=== PATIENT | female | born 1935 | race Caucasian/White ===

== ENCOUNTER 2016-08-20 14:16 | Inpatient (IN) | payer MEDICARE ==
[~2016-08-20] VITALS: Ht 157.5 cm; Wt 48.2 kg
[2016-08-20 15:15] VITALS: BP 104/51
[2016-08-20] MEDS ORDERED: CLOP75TA PO (16:12)
[2016-08-20] MEDS ORDERED: CALC-341 PO (16:12)
[2016-08-20] MEDS ORDERED: GALA12TA PO (16:12)
[2016-08-20] MEDS ORDERED: LORA1TAB PO (16:12)
[2016-08-20] MEDS ORDERED: VITA400C34 PO (16:12)
[2016-08-20] MEDS ORDERED: LEVO100T PO (16:12)
[2016-08-20] MEDS ORDERED: ESCI10TA PO (16:12)
[2016-08-20] MEDS ORDERED: METO25TA9 PO (16:12)
[2016-08-20] MEDS ORDERED: QUET25TA5 PO (16:12)
[2016-08-20] MEDS ORDERED: AMLO5TAB2 PO (16:12)
[2016-08-20] MEDS ORDERED: SERT100T PO (16:12)
[2016-08-20] MEDS ORDERED: ATOR40TA59 PO (16:12)
[2016-08-20] MEDS ORDERED: MULT-246 PO (16:12)
[2016-08-20] MEDS ORDERED: ASPI81TA9 PO (16:12)
[2016-08-20] MEDS ORDERED: ACETAMINOPHEN 325 MG TABLET PO PRN (16:45)
[2016-08-20] MEDS ORDERED: MAG HYDROX/AL HYDROX/SIMETH 30 ML ORAL.SUSP PO PRN (16:45)
[2016-08-20] MEDS ORDERED: MAGNESIUM HYDROXIDE 2,400 MG/30 ML ORAL.SUSP. PO PRN (16:45)
[2016-08-20 17:40] LABS: BASO # 0.1 x10^3/uL (0.0-0.2); BASO % 2 % (0-3); EOS # 0.2 x10^3/uL (0.0-0.7); EOS % 3 % (0-3); HEMOGLOBIN 12.6 g/dL (12.0-15.5); LYMPH # 3.3 x10^3/uL (1.0-4.8); LYMPH % 44 % (24-48); MEAN CORPUSCULAR HEMOGLOBIN 30 pg (25-35); MEAN CORPUSCULAR HGB CONC 32 g/dL (31-37); MEAN CORPUSCULAR VOLUME 92 fL (79-100); MONO # 0.7 x10^3/uL (0.0-1.1); MONO % 10 % (0-9); NEUT % 41 % (31-73); PLATELET COUNT 224 x10^3/uL (140-400); RED BLOOD COUNT 4.25 x10^6/uL (3.50-5.40); RED CELL DISTRIBUTION WIDTH 14.4 % (11.5-14.5); WHITE BLOOD COUNT 7.4 x10^3/uL (4.0-11.0)
--- NOTE | 2016-08-20 17:51 | EKG ---
[address] [address] Test Date: 2016-08-20 Test Time: 16:51:13 Pat Name: ALEJANDRO CHILDERS Department: Room: [address] [place] [address] Gender: F [employer]st: : 1935 Requested By: PRINCESS GLASS Order Number: [id number] Reading MD: Ryan Perez Measurements Intervals [place] Rate: 59 P: 29 TX: 122 QRS: 54 QRSD: 96 T: 56 QT: 396 QTc: 392 Interpretive Statements SINUS RHYTHM Electronically Signed On 09-06-2016 13:22:27 CDT by Ryan Perez
[2016-08-20 17:59] LABS: ALBUMIN 3.2 g/dL (3.4-5.0); ALBUMIN/GLOBULIN RATIO 0.9 (1.0-1.7); CREATININE 1.1 mg/dL (0.6-1.0); GFR 47.8; POTASSIUM 3.8 mmol/L (3.5-5.1); TOTAL BILIRUBIN 0.4 mg/dL (0.2-1.0); TOTAL PROTEIN 6.9 g/dL (6.4-8.2)
[2016-08-20] MEDS ORDERED: NICOTINE 14MG PATCH. TD ONE (19:30)
[2016-08-20] MEDS: QUEtiapine 25 MG TABLET. PO SCH (21:08)
--- NOTE | 2016-08-20 21:15 | PDOC ---
Exam Scott Demential Exam: Scott Note: Please also refer to the separate dictated note~for this date of service dictated separately.~Patient seen individually. Discussed the patient with Nursing staff reviewed the chart.~Reviewed interim history and current functioning. Reviewed vital signs,~Labs/ Radiology~and current medications noted below. Continue current treatment with the changes noted in the dictated addendum note Assessment: Vital Signs: Vital Signs Date Time Temp Pulse Resp B/P Pulse Ox O2 Delivery O2 Flow Rate FiO2 08/20/16 15:15 97.3 63 16 104/51 97 Room Air Labs: Laboratory Tests Test 08/20/16 17:05 White Blood Count 7.4x10^3/uL (4.0-11.0) Red Blood Count 4.25x10^6/uL (3.50-5.40) Hemoglobin 12.6g/dL (12.0-15.5) Hematocrit 39.0% (36.0-47.0) Mean Corpuscular Volume 92fL (79-100) Mean Corpuscular Hemoglobin 30pg (25-35) Mean Corpuscular Hemoglobin Concent 32g/dL (31-37) Red Cell Distribution Width 14.4% (11.5-14.5) Platelet Count 224x10^3/uL (140-400) Neutrophils (%) (Auto) 41% (31-73) Lymphocytes (%) (Auto) 44% (24-48) Monocytes (%) (Auto) 10% (0-9) H Eosinophils (%) (Auto) 3% (0-3) Basophils (%) (Auto) 2% (0-3) Neutrophils # (Auto) 3.0x10^3uL (1.8-7.7) Lymphocytes # (Auto) 3.3x10^3/uL (1.0-4.8) Monocytes # (Auto) 0.7x10^3/uL (0.0-1.1) Eosinophils # (Auto) 0.2x10^3/uL (0.0-0.7) Basophils # (Auto) 0.1x10^3/uL (0.0-0.2) Sodium Level 146mmol/L (136-145) H Potassium Level 3.8mmol/L (3.5-5.1) Chloride Level 108mmol/L (98-107) H Carbon Dioxide Level 30mmol/L (21-32) Anion Gap 8 (6-14) Blood Urea Nitrogen 16mg/dL (7-20) Creatinine 1.1mg/dL (0.6-1.0) H Estimated GFR (Cockcroft-Gault) 47.8 BUN/Creatinine Ratio 15 (6-20) Glucose Level 117mg/dL (70-99) H Calcium Level 9.0mg/dL (8.5-10.1) Magnesium Level 2.0mg/dL (1.8-2.4) Total Bilirubin 0.4mg/dL (0.2-1.0) Aspartate Amino Transferase (AST) 19U/L (15-37) Alanine Aminotransferase (ALT) 20U/L (14-59) Alkaline Phosphatase 76U/L (46-116) Total Protein 6.9g/dL (6.4-8.2) Albumin 3.2g/dL (3.4-5.0) L Albumin/Globulin Ratio 0.9 (1.0-1.7) L Current Medications: Meds: Current Medications Escitalopram Oxalate (Lexapro) 10 mg DAILY PO ; Start 08/21/16 at 09:00 Lorazepam (Ativan) 1 mg PRN Q6HRS PRN PO ANXIETY / AGITATION; Start 08/20/16 at 16:15 Quetiapine Fumarate (SEROquel) 25 mg TID PO Last administered on 08/20/16t 21:08 ; Start 08/20/16 at 21:00 Aspirin (Aspirin Enteric Coated) 81 mg DAILY PO ; Start 08/21/16 at 09:00 Clopidogrel Bisulfate (Plavix) 75 mg DAILY PO ; Start 08/21/16 at 09:00 Levothyroxine Sodium (Synthroid) 100 mcg DAILY07 PO ; Start 08/21/16 at 07:00 Atorvastatin Calcium (Lipitor) 40 mg DAILY PO ; Start 08/21/16 at 09:00 Non-Formulary Medication 1 each DAILY PO ; Start 08/21/16 at 09:00; Status UNV Multivitamins/ Calcium (Thera-M Plus) 1 tab DAILY PO ; Start 08/21/16 at 09:00 Vitamin E 400 unit DAILY PO ; Start 08/21/16 at 09:00 Calcium Carbonate/ Glycine (Tums) 500 mg DAILY PO ; Start 08/21/16 at 09:00 Magnesium Oxide (Magnesium Oxide) 400 mg DAILY PO ; Start 08/21/16 at 09:00 Folic Acid (Folic Acid) 1 mg DAILY PO ; Start 08/21/16 at 09:00 Acetaminophen (Tylenol) 650 mg PRN Q6HRS PRN PO PAIN / TEMP; Start 08/20/16 at 16:45 Al Hydroxide/Mg Hydroxide (Mylanta Plus Xs) 15 ml PRN AFTMEALHC PRN PO DYSPEPSIA; Start 08/20/16 at 16:45 Magnesium Hydroxide (Milk Of Magnesia) 2,400 mg PRN QHS PRN PO CONSTIPATION; Start 08/20/16 at 16:45 Nicotine (Nicoderm Cq 14mg) 1 patch DAILY TD ; Start 08/21/16 at 09:00 Nicotine (Nicoderm Cq 14mg) 1 patch 1X ONCE TD Last administered on 08/20/16t 21:08; Start 08/20/16 at 19:30; Stop 08/20/16 at 19:33; Status DC Active Scripts Active Reported Vitamin E (Vitamin E Acetate) 400 Unit Capsule 400 Unit PO DAILY Seroquel (Quetiapine Fumarate) 25 Mg Tablet 1 Tab PO TID Multi-Vitamin Daily (Multivitamin) 1 Each Tablet 1 Each PO DAILY Metoprolol Succinate ( Xl ) (Metoprolol Succinate) 25 Mg Tab.er.24h 1 Tab PO BID Magnebind 400 Rx Tablet (Calcium Carbonate/Mag Carb/Fa) 1 Each Tablet 1 Each PO DAILY Lorazepam 1 Mg Tablet 1 Mg PO PRN Q6HRS PRN Synthroid (Levothyroxine Sodium) 100 Mcg Tablet 2 Tab PO DAILY Galantamine Hbr 12 Mg Tablet 24 Mg PO DAILY Escitalopram Oxalate 10 Mg Tablet 1 Tab PO DAILY Clopidogrel (Clopidogrel Bisulfate) 75 Mg Tablet 75 Mg PO DAILY Atorvastatin Calcium 40 Mg Tablet 1 Tab PO DAILY Aspirin Ec (Aspirin) 81 Mg Tablet. 1 Tab PO DAILY Amlodipine Besylate 5 Mg Tablet 1 Tab PO DAILY PRINCESS GLASS MD Aug 20, 2016 21:14
[2016-08-21 05:39] VITALS: BP 152/77
[2016-08-21] MEDS ORDERED: LEVOTHYROXINE 100 MCG TABLET PO SCH (07:00)
[2016-08-21] MEDS ORDERED: MAG CARB PO SCH (09:00)
[2016-08-21] MEDS ORDERED: [UNRECOGNIZED DRUG - OTHER] PO SCH (09:00)
[2016-08-21] MEDS ORDERED: CALCIUM CARBONATE PO SCH (09:00)
[2016-08-21] MEDS: ATORVASTATIN CALCIUM 20 MG TABLET PO SCH (11:26)
[2016-08-21] MEDS: MAGNESIUM OXIDE 400 MG TABLET PO SCH (11:27)
[2016-08-21] MEDS: ESCITALOPRAM 10 MG TABLET. PO SCH (11:27)
[2016-08-21] MEDS: CLOPIDOGREL BISULFATE 75 MG TABLET PO SCH (11:27)
[2016-08-21] MEDS: FOLIC ACID 1 MG TABLET PO SCH (11:27)
[2016-08-21] MEDS: MULTIVITAMIN with MINERAL TABLET. PO SCH (11:27)
[2016-08-21] MEDS: CALCIUM CARBONATE 500 MG TAB.CHEW PO SCH (11:27)
[2016-08-21] MEDS: ASPIRIN ENTERIC COATED 81 MG TABLET.DR. PO SCH (11:27)
[2016-08-21] MEDS: NICOTINE 14MG PATCH. TD SCH (11:27)
[2016-08-21] MEDS: VITAMIN E. 400 UNIT CAPSULE. PO SCH (11:27)
[2016-08-21] MEDS: QUEtiapine 25 MG TABLET. PO SCH ×3 (11:28→20:02)
[2016-08-21 12:07] LABS: CHOLESTEROL 145 mg/dL (0-200); HDLC 70 mg/dL (40-60); LDLC 50 mg/dL (0-100); THYROID STIM HORMONE (TSH) < 0.007 uIU/mL (0.358-3.740); TRIGLYCERIDES 128 mg/dL (0-150); VLDLC 25 mg/dL (0-40)
--- NOTE | 2016-08-21 12:17 | RAD ---
Two-view study of the left hip Clinical indications: Fell today. Left hip pain. Findings: No acute fracture or dislocation or osteolytic process of the left hip is seen. There is a deformity of the inferior pubic ramus on the left side which may represent a nondisplaced fracture here. IMPRESSION: Nondisplaced fracture of the inferior left pubic ramus.
[2016-08-21] MEDS ORDERED: CYANOCOBALAMIN (VITAMIN B-12) 1,000 MCG/ML VIAL IM SCH (13:45)
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
[2016-08-21 15:44] VITALS: BP 167/66
[2016-08-21] MEDS: LORAZEPAM 1 MG TABLET. PO PRN ×2 (15:52→16:42)
[2016-08-21] MEDS: busPIRone 5 MG TABLET. PO SCH (20:02)
[2016-08-21] MEDS: METOPROLOL SUCC 24HR ER 25 MG TAB.ER.24H. PO SCH (20:02)
[2016-08-21] MEDS: ACETAMINOPHEN 325 MG TABLET PO SCH ×2 (20:03→20:30)
--- NOTE | 2016-08-21 22:02 | PDOC ---
Exam Scott Demential Exam: Scott Note: Please also refer to the separate dictated note~for this date of service dictated separately.~Patient seen individually. Discussed the patient with Nursing staff reviewed the chart.~Reviewed interim history and current functioning. Reviewed vital signs,~Labs/ Radiology~and current medications noted below. Continue current treatment with the changes noted in the dictated addendum note Assessment: Vital Signs: Vital Signs Date Time Temp Pulse Resp B/P Pulse Ox O2 Delivery O2 Flow Rate FiO2 08/21/16 20:02 78 167/66 08/21/16 15:44 97.8 18 96 08/21/16 05:39 Room Air I&O Intake and Output 08/21/16 07:00 Intake Total 480 ml Balance 480 ml Intake Oral 480 ml Current Medications: Meds: Current Medications Escitalopram Oxalate (Lexapro) 10 mg DAILY PO Last administered on 08/21/16 11: 27; Start 08/21/16 at 09:00 Lorazepam (Ativan) 1 mg PRN Q6HRS PRN PO ANXIETY / AGITATION Last administered on 08/21/16 16:42; Start 08/20/16 at 16:15; Stop 08/21/16 at 18:21; Status DC Quetiapine Fumarate (SEROquel) 25 mg TID PO Last administered on 08/21/16 20:02 ; Start 08/20/16 at 21:00 Aspirin (Aspirin Enteric Coated) 81 mg DAILY PO Last administered on 08/21/16 11:27; Start 08/21/16 at 09:00 Clopidogrel Bisulfate (Plavix) 75 mg DAILY PO Last administered on 08/21/16 11: 27; Start 08/21/16 at 09:00 Levothyroxine Sodium (Synthroid) 100 mcg DAILY07 PO Last administered on 06:03; Start 08/21/16 at 07:00; Stop 08/21/16 at 13:17; Status DC Atorvastatin Calcium (Lipitor) 40 mg DAILY PO Last administered on 08/21/16 11: 26; Start 08/21/16 at 09:00 Non-Formulary Medication 1 each DAILY PO ; Start 08/21/16 at 09:00; Status UNV Multivitamins/ Calcium (Thera-M Plus) 1 tab DAILY PO Last administered on 11:27; Start 08/21/16 at 09:00 Vitamin E 400 unit DAILY PO Last administered on 08/21/16 11:27; Start 08/21/16 at 09:00 Calcium Carbonate/ Glycine (Tums) 500 mg DAILY PO Last administered on 11:27; Start 08/21/16 at 09:00 Magnesium Oxide (Magnesium Oxide) 400 mg DAILY PO Last administered on 11:; Start 08/21/16 at 09:00 Folic Acid (Folic Acid) 1 mg DAILY PO Last administered on 08/21/16 11:; Start 08/21/16 at 09:00 Acetaminophen (Tylenol) 650 mg PRN Q6HRS PRN PO PAIN / TEMP; Start 08/20/16 at 16:45 Al Hydroxide/Mg Hydroxide (Mylanta Plus Xs) 15 ml PRN AFTMEALHC PRN PO DYSPEPSIA; Start 08/20/16 at 16:45 Magnesium Hydroxide (Milk Of Magnesia) 2,400 mg PRN QHS PRN PO CONSTIPATION; Start 08/20/16 at 16:45 Nicotine (Nicoderm Cq 14mg) 1 patch DAILY TD Last administered on 08/21/16 11: 27; Start 08/21/16 at 09:00 Nicotine (Nicoderm Cq 14mg) 1 patch 1X ONCE TD Last administered on 08/20/16 21:08; Start 08/20/16 at 19:30; Stop 08/20/16 at 19:33; Status DC Metoprolol Succinate (Toprol Xl) 25 mg BID PO Last administered on 08/21/16 20: 02; Start 08/21/16 at 21:00 Cyanocobalamin (Vitamin B-12) 1,000 mcg [id number] IM Last administered on 13:45; Start 08/21/16 at 13:45 Acetaminophen (Tylenol) 650 mg BID PO ; Start 08/21/16 at 21:00 Lorazepam (Ativan) 0.25 mg PRN Q2HR PRN PO ANXIETY / AGITATION; Start 08/22/16 at 16:15 Buspirone HCl (Buspar) 5 mg BID PO Last administered on 08/21/16 20:02; Start 08/21/16 at 21:00 Active Scripts Active Reported Vitamin E (Vitamin E Acetate) 400 Unit Capsule 400 Unit PO DAILY Seroquel (Quetiapine Fumarate) 25 Mg Tablet 1 Tab PO TID Multi-Vitamin Daily (Multivitamin) 1 Each Tablet 1 Each PO DAILY Metoprolol Succinate ( Xl ) (Metoprolol Succinate) 25 Mg Tab.er.24h 1 Tab PO BID Magnebind 400 Rx Tablet (Calcium Carbonate/Mag Carb/Fa) 1 Each Tablet 1 Each PO DAILY Lorazepam 1 Mg Tablet 1 Mg PO PRN Q6HRS PRN Synthroid (Levothyroxine Sodium) 100 Mcg Tablet 2 Tab PO DAILY Galantamine Hbr 12 Mg Tablet 24 Mg PO DAILY Escitalopram Oxalate 10 Mg Tablet 1 Tab PO DAILY Clopidogrel (Clopidogrel Bisulfate) 75 Mg Tablet 75 Mg PO DAILY Atorvastatin Calcium 40 Mg Tablet 1 Tab PO DAILY Aspirin Ec (Aspirin) 81 Mg Tablet. 1 Tab PO DAILY Amlodipine Besylate 5 Mg Tablet 1 Tab PO DAILY PRINCESS GLASS MD Aug 21, 2016 22:02
--- NOTE | 2016-08-21 22:26 | HP ---
ADMIT DATE: 08/20/2016 IDENTIFYING DATA: The patient is an 80-year-old female referred to us from home by her primary care physician, Dr. Jaime Sosa after the patient was evaluated by Dr. Sosa for increased anger, irritability, being hateful to caregivers at home and after the patient "faked" fall at the [facility] and eloped from the hospital. She has been having mood swings, refuses medications, destroyed her apartment, made suicidal statements about wanting to . She has reportedly had anxiety attacks, hallucinations and has failed outpatient psychiatric interventions with Dr. Zayas, having being treated on antidepressants and Seroquel. Memory deficits have been worsening for about 1-1/2 years, but symptoms have been much worse in the past several days resulting in this referral by Dr. Sosa. CHIEF COMPLAINT: "I came here to get my leg checked out." HISTORY OF PRESENT ILLNESS: The patient reportedly has had a history of TIAs, brain aneurysm in and recently has been increasingly confused, forgetful and has a diagnosis of Alzheimer disease. In the recent past, she has been increasingly psychotic, agitated as noted above. She has had sleep and appetite changes. No homicidal ideation, though she has voiced suicidal ideation. PAST PSYCHIATRIC HISTORY: As above. MEDICAL HISTORY: Aneurysm of ascending aorta, aortic valve regurgitation, coronary artery disease, hypertension, hypothyroidism, history of recurrent UTIs, cholelithiasis, status post CVA, GERD, history of pancreatitis, subdural hematoma, B12 deficiency. ALLERGIES: CONTRAST DYE, CEFTRIAXONE, CLARITHROMYCIN, CODEINE, DICLOFENAC, ESTRADIOL, GUAIFENESIN, IODINE, NORETHINDRONE, AZITHROMYCIN, CYCLOBENZAPRINE, DECADRON, LEVAQUIN, ROCEPHIN, SULFA, VOLTAREN. DIET: Regular, ambulates ad-obi. CURRENT PSYCHOTROPICS: Seroquel 25 mg 3 times a day, Lexapro 10 mg a day, Ativan 1 mg q. 6 hours p.r.n. anxiety. FAMILY HISTORY: Noncontributory. SOCIAL HISTORY: No alcohol, drug abuse, physical, sexual or elder abuse history is noted. She is not known to be a perpetrator. MENTAL STATUS EXAMINATION: The patient was seen individually in the evening of 08/20/2016. She is anxious, somewhat paranoid, suspicious, why I was asking her all these questions, oriented to herself, unaware of the date. Speech is coherent, has some latency, abstraction fair, computation impaired, language function intact, attention span short. Mood and affect somewhat anxious, labile, dysphoric, memory is impaired. No active suicidal or homicidal ideation. PHYSICAL EXAMINATION: Temperature 97.6, BP 152/77, pulse 62, respirations 18. REVIEW OF SYSTEMS: No CV, , pulmonary, eye, ENT system symptoms on review. Reliability poor. 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 Rest of diagnoses as above. PLAN: Admit to the Geropsychiatry Unit at [facility]. I will see the patient daily individually from a psychiatric standpoint and medical followup with Dr. Greenfield/Dr. Brock. Continue the patient on her current psychotropics, observe baseline, adjust further as clinically indicated. MAN Ernesto GLASS MD DR: REZA/dank JOB#: [id number] / [id number]
[2016-08-21 23:07] LABS: HEMOGLOBIN A1C 5.5 % (4.8-5.6)
[2016-08-22 00:09] LABS: T3 TOTAL 92 ng/dL (71-180)
[2016-08-22 01:06] LABS: THYROXINE 8.9 ug/dL (4.5-12.0)
[2016-08-22 05:44] VITALS: BP 136/70
[2016-08-22] MEDS: CALCIUM CARBONATE 500 MG TAB.CHEW PO SCH (08:08)
[2016-08-22] MEDS: ATORVASTATIN CALCIUM 20 MG TABLET PO SCH (08:09)
[2016-08-22] MEDS: MAGNESIUM OXIDE 400 MG TABLET PO SCH (08:09)
[2016-08-22] MEDS: FOLIC ACID 1 MG TABLET PO SCH (08:09)
[2016-08-22] MEDS: ESCITALOPRAM 10 MG TABLET. PO SCH (08:09)
[2016-08-22] MEDS: VITAMIN E. 400 UNIT CAPSULE. PO SCH (08:09)
[2016-08-22] MEDS: ASPIRIN ENTERIC COATED 81 MG TABLET.DR. PO SCH (08:09)
[2016-08-22] MEDS: NICOTINE 14MG PATCH. TD SCH (08:09)
[2016-08-22] MEDS: busPIRone 5 MG TABLET. PO SCH (08:09)
[2016-08-22] MEDS: MULTIVITAMIN with MINERAL TABLET. PO SCH (08:09)
[2016-08-22] MEDS: QUEtiapine 25 MG TABLET. PO SCH ×3 (08:10→19:32)
[2016-08-22] MEDS: CLOPIDOGREL BISULFATE 75 MG TABLET PO SCH (08:10)
[2016-08-22] MEDS: METOPROLOL SUCC 24HR ER 25 MG TAB.ER.24H. PO SCH ×2 (08:10→19:32)
[2016-08-22] MEDS: ACETAMINOPHEN 325 MG TABLET PO SCH (08:10)
[2016-08-22 15:55] VITALS: BP 137/71
[2016-08-22] MEDS: LORAZEPAM 0.5 MG TABLET PO PRN (17:15)
[2016-08-22] MEDS: busPIRone 10 MG TABLET. PO SCH (19:57)
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
--- NOTE | 2016-08-22 21:00 | PDOC ---
Exam Scott Demential Exam: Scott Note: Please also refer to the separate dictated note~for this date of service dictated separately.~Patient seen individually. Discussed the patient with Nursing staff reviewed the chart.~Reviewed interim history and current functioning. Reviewed vital signs,~Labs/ Radiology~and current medications noted below. Continue current treatment with the changes noted in the dictated addendum note Assessment: Vital Signs: Vital Signs Date Time Temp Pulse Resp B/P Pulse Ox O2 Delivery O2 Flow Rate FiO2 08/22/16 19:32 69 137/71 08/22/16 15:55 98.0 16 97 Room Air I&O Intake and Output 08/22/16 07:00 Intake Total 840 ml Balance 840 ml Intake Oral 840 ml Current Medications: Meds: Current Medications Escitalopram Oxalate (Lexapro) 10 mg DAILY PO Last administered on 08/22/16 08: 09; Start 08/21/16 at 09:00 Lorazepam (Ativan) 1 mg PRN Q6HRS PRN PO ANXIETY / AGITATION Last administered on 08/21/16 16:42; Start 08/20/16 at 16:15; Stop 08/21/16 at 18:21; Status DC Quetiapine Fumarate (SEROquel) 25 mg TID PO Last administered on 08/22/16 19:32 ; Start 08/20/16 at 21:00 Aspirin (Aspirin Enteric Coated) 81 mg DAILY PO Last administered on 08/22/16 08:09; Start 08/21/16 at 09:00 Clopidogrel Bisulfate (Plavix) 75 mg DAILY PO Last administered on 08/22/16 08: 10; Start 08/21/16 at 09:00 Levothyroxine Sodium (Synthroid) 100 mcg DAILY07 PO Last administered on 06:03; Start 08/21/16 at 07:00; Stop 08/21/16 at 13:17; Status DC Atorvastatin Calcium (Lipitor) 40 mg DAILY PO Last administered on 08/22/16 08: 09; Start 08/21/16 at 09:00; Stop 08/22/16 at 11:20; Status DC Non-Formulary Medication 1 each DAILY PO ; Start 08/21/16 at 09:00; Status UNV Multivitamins/ Calcium (Thera-M Plus) 1 tab DAILY PO Last administered on 08:09; Start 08/21/16 at 09:00; Stop 08/22/16 at 11:20; Status DC Vitamin E 400 unit DAILY PO Last administered on 08/22/16 08:09; Start 08/21/16 at 09:00; Stop 08/22/16 at 11:20; Status DC Calcium Carbonate/ Glycine (Tums) 500 mg DAILY PO Last administered on 08:08; Start 08/21/16 at 09:00; Stop 08/22/16 at 11:20; Status DC Magnesium Oxide (Magnesium Oxide) 400 mg DAILY PO Last administered on 08:09; Start 08/21/16 at 09:00; Stop 08/22/16 at 11:20; Status DC Folic Acid (Folic Acid) 1 mg DAILY PO Last administered on 08/22/16 08:09; Start 08/21/16 at 09:00; Stop 08/22/16 at 11:20; Status DC Acetaminophen (Tylenol) 650 mg PRN Q6HRS PRN PO PAIN / TEMP; Start 08/20/16 at 16:45 Al Hydroxide/Mg Hydroxide (Mylanta Plus Xs) 15 ml PRN AFTMEALHC PRN PO DYSPEPSIA; Start 08/20/16 at 16:45 Magnesium Hydroxide (Milk Of Magnesia) 2,400 mg PRN QHS PRN PO CONSTIPATION; Start 08/20/16 at 16:45 Nicotine (Nicoderm Cq 14mg) 1 patch DAILY TD Last administered on 08/22/16 08: 09; Start 08/21/16 at 09:00 Nicotine (Nicoderm Cq 14mg) 1 patch 1X ONCE TD Last administered on 08/20/16 21:08; Start 08/20/16 at 19:30; Stop 08/20/16 at 19:33; Status DC Metoprolol Succinate (Toprol Xl) 25 mg BID PO Last administered on 08/22/16 19: 32; Start 08/21/16 at 21:00 Cyanocobalamin (Vitamin B-12) 1,000 mcg [id number] IM Last administered on 13:45; Start 08/21/16 at 13:45 Acetaminophen (Tylenol) 650 mg BID PO Last administered on 08/22/16 08:10; Start 08/21/16 at 21:00; Stop 08/22/16 at 11:20; Status DC Lorazepam (Ativan) 0.25 mg PRN Q2HR PRN PO ANXIETY / AGITATION Last administered on 08/22/16 17:15; Start 08/22/16 at 16:15 Buspirone HCl (Buspar) 5 mg BID PO Last administered on 08/22/16 08:09; Start 08/21/16 at 21:00; Stop 08/22/16 at 18:22; Status DC Atorvastatin Calcium (Lipitor) 40 mg HS PO ; Start 08/23/16 at 21:00 Buspirone HCl (Buspar) 10 mg BID PO Last administered on 08/22/16 19:57; Start 08/22/16 at 21:00 Active Scripts Active Reported Vitamin E (Vitamin E Acetate) 400 Unit Capsule 400 Unit PO DAILY Seroquel (Quetiapine Fumarate) 25 Mg Tablet 1 Tab PO TID Multi-Vitamin Daily (Multivitamin) 1 Each Tablet 1 Each PO DAILY Metoprolol Succinate ( Xl ) (Metoprolol Succinate) 25 Mg Tab.er.24h 1 Tab PO BID Magnebind 400 Rx Tablet (Calcium Carbonate/Mag Carb/Fa) 1 Each Tablet 1 Each PO DAILY Lorazepam 1 Mg Tablet 1 Mg PO PRN Q6HRS PRN Synthroid (Levothyroxine Sodium) 100 Mcg Tablet 2 Tab PO DAILY Galantamine Hbr 12 Mg Tablet 24 Mg PO DAILY Escitalopram Oxalate 10 Mg Tablet 1 Tab PO DAILY Clopidogrel (Clopidogrel Bisulfate) 75 Mg Tablet 75 Mg PO DAILY Atorvastatin Calcium 40 Mg Tablet 1 Tab PO DAILY Aspirin Ec (Aspirin) 81 Mg Tablet. 1 Tab PO DAILY Amlodipine Besylate 5 Mg Tablet 1 Tab PO DAILY PRINCESS GLASS MD Aug 22, 2016 21:00
[2016-08-23 05:58] VITALS: BP 112/53
[2016-08-23] MEDS: ASPIRIN ENTERIC COATED 81 MG TABLET.DR. PO SCH (08:11)
[2016-08-23] MEDS: CLOPIDOGREL BISULFATE 75 MG TABLET PO SCH (08:12)
[2016-08-23] MEDS: ESCITALOPRAM 10 MG TABLET. PO SCH (08:12)
[2016-08-23] MEDS: busPIRone 10 MG TABLET. PO SCH ×2 (08:12→20:22)
[2016-08-23] MEDS: QUEtiapine 25 MG TABLET. PO SCH ×4 (08:13→20:22)
[2016-08-23] MEDS: METOPROLOL SUCC 24HR ER 25 MG TAB.ER.24H. PO SCH ×2 (08:14→20:22)
[2016-08-23] MEDS: NICOTINE 14MG PATCH. TD SCH ×2 (08:15→09:00)
[2016-08-23 20:14] VITALS: BP 112/54
[2016-08-23] MEDS: ATORVASTATIN CALCIUM 20 MG TABLET PO SCH (20:22)
--- NOTE | 2016-08-23 20:58 | PDOC ---
Exam Scott Demential Exam: Scott Note: Please also refer to the separate dictated note~for this date of service dictated separately.~Patient seen individually. Discussed the patient with Nursing staff reviewed the chart.~Reviewed interim history and current functioning. Reviewed vital signs,~Labs/ Radiology~and current medications noted below. Continue current treatment with the changes noted in the dictated addendum note Assessment: Vital Signs: Vital Signs Date Time Temp Pulse Resp B/P Pulse Ox O2 Delivery O2 Flow Rate FiO2 08/23/16 20:22 64 112/54 08/23/16 20:14 98.2 16 94 Room Air I&O Intake and Output 08/23/16 07:00 Intake Total 800 ml Balance 800 ml Intake Oral 800 ml # Voids 2 Current Medications: Meds: Current Medications Escitalopram Oxalate (Lexapro) 10 mg DAILY PO Last administered on 08/23/16 08 :12; Start 08/21/16 at 09:00 Lorazepam (Ativan) 1 mg PRN Q6HRS PRN PO ANXIETY / AGITATION Last administered on 08/21/16 16:42; Start 08/20/16 at 16:15; Stop 08/21/16 at 18:21; Status DC Quetiapine Fumarate (SEROquel) 25 mg TID PO Last administered on 08/23/16 20: 22; Start 08/20/16 at 21:00 Aspirin (Aspirin Enteric Coated) 81 mg DAILY PO Last administered on 08/23/16 08:11; Start 08/21/16 at 09:00 Clopidogrel Bisulfate (Plavix) 75 mg DAILY PO Last administered on 08/23/16 08 :12; Start 08/21/16 at 09:00 Levothyroxine Sodium (Synthroid) 100 mcg DAILY07 PO Last administered on 06:03; Start 08/21/16 at 07:00; Stop 08/21/16 at 13:17; Status DC Atorvastatin Calcium (Lipitor) 40 mg DAILY PO Last administered on 08/22/16 08: 09; Start 08/21/16 at 09:00; Stop 08/22/16 at 11:20; Status DC Non-Formulary Medication 1 each DAILY PO ; Start 08/21/16 at 09:00; Status UNV Multivitamins/ Calcium (Thera-M Plus) 1 tab DAILY PO Last administered on 08:09; Start 08/21/16 at 09:00; Stop 08/22/16 at 11:20; Status DC Vitamin E 400 unit DAILY PO Last administered on 08/22/16 08:09; Start 08/21/16 at 09:00; Stop 08/22/16 at 11:20; Status DC Calcium Carbonate/ Glycine (Tums) 500 mg DAILY PO Last administered on 08:08; Start 08/21/16 at 09:00; Stop 08/22/16 at 11:20; Status DC Magnesium Oxide (Magnesium Oxide) 400 mg DAILY PO Last administered on 08:09; Start 08/21/16 at 09:00; Stop 08/22/16 at 11:20; Status DC Folic Acid (Folic Acid) 1 mg DAILY PO Last administered on 08/22/16 08:09; Start 08/21/16 at 09:00; Stop 08/22/16 at 11:20; Status DC Acetaminophen (Tylenol) 650 mg PRN Q6HRS PRN PO PAIN / TEMP; Start 08/20/16 at 16:45 Al Hydroxide/Mg Hydroxide (Mylanta Plus Xs) 15 ml PRN AFTMEALHC PRN PO DYSPEPSIA; Start 08/20/16 at 16:45 Magnesium Hydroxide (Milk Of Magnesia) 2,400 mg PRN QHS PRN PO CONSTIPATION; Start 08/20/16 at 16:45 Nicotine (Nicoderm Cq 14mg) 1 patch DAILY TD Last administered on 08/22/16 08: 09; Start 08/21/16 at 09:00 Nicotine (Nicoderm Cq 14mg) 1 patch 1X ONCE TD Last administered on 08/20/16 21:08; Start 08/20/16 at 19:30; Stop 08/20/16 at 19:33; Status DC Metoprolol Succinate (Toprol Xl) 25 mg BID PO Last administered on 08/23/16 08 :14; Start 08/21/16 at 21:00 Cyanocobalamin (Vitamin B-12) 1,000 mcg [id number] IM Last administered on 13:45; Start 08/21/16 at 13:45 Acetaminophen (Tylenol) 650 mg BID PO Last administered on 08/22/16 08:10; Start 08/21/16 at 21:00; Stop 08/22/16 at 11:20; Status DC Lorazepam (Ativan) 0.25 mg PRN Q2HR PRN PO ANXIETY / AGITATION Last administered on 08/22/16 17:15; Start 08/22/16 at 16:15 Buspirone HCl (Buspar) 5 mg BID PO Last administered on 08/22/16 08:09; Start 08/21/16 at 21:00; Stop 08/22/16 at 18:22; Status DC Atorvastatin Calcium (Lipitor) 40 mg HS PO ; Start 08/23/16 at 21:00 Buspirone HCl (Buspar) 10 mg BID PO Last administered on 08/23/16 20:22; Start 08/22/16 at 21:00 Active Scripts Active Reported Vitamin E (Vitamin E Acetate) 400 Unit Capsule 400 Unit PO DAILY Seroquel (Quetiapine Fumarate) 25 Mg Tablet 1 Tab PO TID Multi-Vitamin Daily (Multivitamin) 1 Each Tablet 1 Each PO DAILY Metoprolol Succinate ( Xl ) (Metoprolol Succinate) 25 Mg Tab.er.24h 1 Tab PO BID Magnebind 400 Rx Tablet (Calcium Carbonate/Mag Carb/Fa) 1 Each Tablet 1 Each PO DAILY Lorazepam 1 Mg Tablet 1 Mg PO PRN Q6HRS PRN Synthroid (Levothyroxine Sodium) 100 Mcg Tablet 2 Tab PO DAILY Galantamine Hbr 12 Mg Tablet 24 Mg PO DAILY Escitalopram Oxalate 10 Mg Tablet 1 Tab PO DAILY Clopidogrel (Clopidogrel Bisulfate) 75 Mg Tablet 75 Mg PO DAILY Atorvastatin Calcium 40 Mg Tablet 1 Tab PO DAILY Aspirin Ec (Aspirin) 81 Mg Tablet. 1 Tab PO DAILY Amlodipine Besylate 5 Mg Tablet 1 Tab PO DAILY PRINCESS GLASS MD Aug 23, 2016 20:58
--- NOTE | 2016-08-23 23:48 | PN ---
DATE: 08/22/2016 PSYCHIATRIC PROGRESS NOTE This is late entry of 08/22/2016, covers elements not covered in my initial note. SUBJECTIVE: Per nursing report, the patient has been irritable, refused p.r.n., has worsening confusion with sundowning, somewhat paranoid, suspicious. REVIEW OF SYSTEMS: No CV, , eye, ENT or pulmonary system symptoms on review. Reliability poor. MENTAL STATUS EXAMINATION: Oriented to herself and situation. Speech, often responses monosyllabic. Abstraction fair, computation impaired, language function intact. Mood and affect withdrawn. LABORATORY DATA: Reviewed. 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 PLAN: Increase BuSpar from 5 b.i.d. to 10 b.i.d., continue Seroquel 25 t.i.d., Lexapro 10 mg a day, Ativan p.r.n. Adjust further as clinically indicated. PRINCESS GLASS MD DR: REZA/dank JOB#: [id number] / [id number]
[2016-08-24 06:18] VITALS: BP 147/61
[2016-08-24] MEDS: busPIRone 10 MG TABLET. PO SCH ×2 (08:05→20:19)
[2016-08-24] MEDS: ASPIRIN ENTERIC COATED 81 MG TABLET.DR. PO SCH (08:05)
[2016-08-24] MEDS: CLOPIDOGREL BISULFATE 75 MG TABLET PO SCH (08:06)
[2016-08-24] MEDS: QUEtiapine 25 MG TABLET. PO SCH ×2 (08:06→13:02)
[2016-08-24] MEDS: ESCITALOPRAM 10 MG TABLET. PO SCH (08:06)
[2016-08-24] MEDS: NICOTINE 14MG PATCH. TD SCH ×2 (08:07→09:00)
[2016-08-24] MEDS: METOPROLOL SUCC 24HR ER 25 MG TAB.ER.24H. PO SCH ×2 (08:07→20:19)
[2016-08-24] MEDS: LORAZEPAM 0.5 MG TABLET PO PRN (15:13)
[2016-08-24] MEDS: risperiDONE 0.25 MG TABLET. PO SCH (20:19)
[2016-08-24] MEDS: ATORVASTATIN CALCIUM 20 MG TABLET PO SCH (20:20)
[2016-08-24 20:24] VITALS: BP 94/50
--- NOTE | 2016-08-24 21:00 | PDOC ---
Exam Scott Demential Exam: Scott Note: Please also refer to the separate dictated note~for this date of service dictated separately.~Patient seen individually. Discussed the patient with Nursing staff reviewed the chart.~Reviewed interim history and current functioning. Reviewed vital signs,~Labs/ Radiology~and current medications noted below. Continue current treatment with the changes noted in the dictated addendum note Assessment: Vital Signs: Vital Signs Date Time Temp Pulse Resp B/P Pulse Ox O2 Delivery O2 Flow Rate FiO2 08/24/16 20:24 97.4 70 16 94/50 95 Room Air I&O Intake and Output 08/24/16 07:00 Intake Total 1200 ml Balance 1200 ml Intake Oral 1200 ml Current Medications: Meds: Current Medications Escitalopram Oxalate (Lexapro) 10 mg DAILY PO Last administered on 08/24/16 08 :06; Start 08/21/16 at 09:00 Lorazepam (Ativan) 1 mg PRN Q6HRS PRN PO ANXIETY / AGITATION Last administered on 08/21/16 16:42; Start 08/20/16 at 16:15; Stop 08/21/16 at 18:21; Status DC Quetiapine Fumarate (SEROquel) 25 mg TID PO Last administered on 08/24/16 13: 02; Start 08/20/16 at 21:00; Stop 08/24/16 at 18:12; Status DC Aspirin (Aspirin Enteric Coated) 81 mg DAILY PO Last administered on 08/24/16 08:05; Start 08/21/16 at 09:00 Clopidogrel Bisulfate (Plavix) 75 mg DAILY PO Last administered on 08/24/16 08 :06; Start 08/21/16 at 09:00 Levothyroxine Sodium (Synthroid) 100 mcg DAILY07 PO Last administered on 06:03; Start 08/21/16 at 07:00; Stop 08/21/16 at 13:17; Status DC Atorvastatin Calcium (Lipitor) 40 mg DAILY PO Last administered on 08/22/16 08: 09; Start 08/21/16 at 09:00; Stop 08/22/16 at 11:20; Status DC Non-Formulary Medication 1 each DAILY PO ; Start 08/21/16 at 09:00; Status UNV Multivitamins/ Calcium (Thera-M Plus) 1 tab DAILY PO Last administered on 08:09; Start 08/21/16 at 09:00; Stop 08/22/16 at 11:20; Status DC Vitamin E 400 unit DAILY PO Last administered on 08/22/16 08:09; Start 08/21/16 at 09:00; Stop 08/22/16 at 11:20; Status DC Calcium Carbonate/ Glycine (Tums) 500 mg DAILY PO Last administered on 08:08; Start 08/21/16 at 09:00; Stop 08/22/16 at 11:20; Status DC Magnesium Oxide (Magnesium Oxide) 400 mg DAILY PO Last administered on 08:09; Start 08/21/16 at 09:00; Stop 08/22/16 at 11:20; Status DC Folic Acid (Folic Acid) 1 mg DAILY PO Last administered on 08/22/16 08:09; Start 08/21/16 at 09:00; Stop 08/22/16 at 11:20; Status DC Acetaminophen (Tylenol) 650 mg PRN Q6HRS PRN PO PAIN / TEMP; Start 08/20/16 at 16:45 Al Hydroxide/Mg Hydroxide (Mylanta Plus Xs) 15 ml PRN AFTMEALHC PRN PO DYSPEPSIA; Start 08/20/16 at 16:45 Magnesium Hydroxide (Milk Of Magnesia) 2,400 mg PRN QHS PRN PO CONSTIPATION; Start 08/20/16 at 16:45 Nicotine (Nicoderm Cq 14mg) 1 patch DAILY TD Last administered on 08/22/16 08: 09; Start 08/21/16 at 09:00 Nicotine (Nicoderm Cq 14mg) 1 patch 1X ONCE TD Last administered on 08/20/16 21:08; Start 08/20/16 at 19:30; Stop 08/20/16 at 19:33; Status DC Metoprolol Succinate (Toprol Xl) 25 mg BID PO Last administered on 08/24/16 08 :07; Start 08/21/16 at 21:00 Cyanocobalamin (Vitamin B-12) 1,000 mcg [id number] IM Last administered on 13:45; Start 08/21/16 at 13:45 Acetaminophen (Tylenol) 650 mg BID PO Last administered on 08/22/16 08:10; Start 08/21/16 at 21:00; Stop 08/22/16 at 11:20; Status DC Lorazepam (Ativan) 0.25 mg PRN Q2HR PRN PO ANXIETY / AGITATION Last administered on 08/24/16 15:13; Start 08/22/16 at 16:15 Buspirone HCl (Buspar) 5 mg BID PO Last administered on 08/22/16 08:09; Start 08/21/16 at 21:00; Stop 08/22/16 at 18:22; Status DC Atorvastatin Calcium (Lipitor) 40 mg HS PO Last administered on 08/24/16 20:20 ; Start 08/23/16 at 21:00 Buspirone HCl (Buspar) 10 mg BID PO Last administered on 08/24/16 20:19; Start 08/22/16 at 21:00 Risperidone (Risperdal) 0.25 mg QHS PO Last administered on 08/24/16 20:19; Start 08/24/16 at 21:00 Active Scripts Active Reported Vitamin E (Vitamin E Acetate) 400 Unit Capsule 400 Unit PO DAILY Seroquel (Quetiapine Fumarate) 25 Mg Tablet 1 Tab PO TID Multi-Vitamin Daily (Multivitamin) 1 Each Tablet 1 Each PO DAILY Metoprolol Succinate ( Xl ) (Metoprolol Succinate) 25 Mg Tab.er.24h 1 Tab PO BID Magnebind 400 Rx Tablet (Calcium Carbonate/Mag Carb/Fa) 1 Each Tablet 1 Each PO DAILY Lorazepam 1 Mg Tablet 1 Mg PO PRN Q6HRS PRN Synthroid (Levothyroxine Sodium) 100 Mcg Tablet 2 Tab PO DAILY Galantamine Hbr 12 Mg Tablet 24 Mg PO DAILY Escitalopram Oxalate 10 Mg Tablet 1 Tab PO DAILY Clopidogrel (Clopidogrel Bisulfate) 75 Mg Tablet 75 Mg PO DAILY Atorvastatin Calcium 40 Mg Tablet 1 Tab PO DAILY Aspirin Ec (Aspirin) 81 Mg Tablet. 1 Tab PO DAILY Amlodipine Besylate 5 Mg Tablet 1 Tab PO DAILY PRINCESS GLASS MD Aug 24, 2016 21:00
--- NOTE | 2016-08-25 04:23 | PN ---
DATE: 08/23/2016 PSYCHIATRIC PROGRESS NOTE This is a late entry for 08/23/2016, covers elements not covered in my initial note. SUBJECTIVE: The patient slept 7-1/4 hours previous night, took her a.m. medication, refused nicotine patch, confused, believed she was admitted on 08/23/2016, refused Seroquel at 1400 hours, trying to sneak out of the unit at times, nasty, sarcastic per nursing report. REVIEW OF SYSTEMS: No CV, , pulmonary, eye, ENT system symptoms on review. MENTAL STATUS EXAMINATION: Oriented to herself and at times to situation. Speech coherent, abstraction fair, computation impaired. Language function intact. Attention span short. Mood and affect, intermittently anxious, labile. LABORATORY DATA: Reviewed. IMPRESSION: Unchanged from initial note. PLAN: Continue psychotropics mentioned in my initial note. Adjust further as clinically indicated. BuSpar was adjusted to 10 mg b.i.d. She is on Seroquel 25 mg t.i.d., Lexapro 10 mg a day, and Ativan p.r.n. MAN Ernesto GLASS MD DR: REZA/dank JOB#: [id number] / [id number]
[2016-08-25 05:12] VITALS: BP 143/61
[2016-08-25] MEDS: busPIRone 10 MG TABLET. PO SCH ×2 (08:18→19:32)
[2016-08-25] MEDS: ASPIRIN ENTERIC COATED 81 MG TABLET.DR. PO SCH (08:18)
[2016-08-25] MEDS: CLOPIDOGREL BISULFATE 75 MG TABLET PO SCH (08:18)
[2016-08-25] MEDS: NICOTINE 14MG PATCH. TD SCH ×2 (08:19→08:25)
[2016-08-25] MEDS: ESCITALOPRAM 10 MG TABLET. PO SCH (08:19)
[2016-08-25] MEDS: METOPROLOL SUCC 24HR ER 25 MG TAB.ER.24H. PO SCH ×2 (08:19→19:31)
--- NOTE | 2016-08-25 11:20 | RAD ---
CT of the head without contrast, 08/25/2016: History: Altered mental status There is mild cerebral atrophy. There are moderate patchy lucencies in the deep white matter, more so on the right, compatible with chronic ischemic change. 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 The ventricles are mildly prominent on a compensatory basis. There is no shift of the midline structures. There is no evidence of acute intracranial hemorrhage or mass effect. Small left frontotemporal calvarial defects appear to be postsurgical. IMPRESSION: 1. Chronic changes as described above. 2. No acute intracranial abnormality is detected. PQRS Compliance Statement: One or more of the following individualized dose reduction techniques were utilized for this examination: 1. Automated exposure control 2. Adjustment of the mA and/or kV according to patient size 3. Use of iterative reconstruction technique
[2016-08-25] MEDS: risperiDONE 0.25 MG TABLET. PO SCH (19:31)
[2016-08-25] MEDS: ATORVASTATIN CALCIUM 20 MG TABLET PO SCH (19:32)
[2016-08-25 19:34] VITALS: BP 162/62
--- NOTE | 2016-08-25 21:03 | PDOC ---
Exam Scott Demential Exam: Scott Note: Please also refer to the separate dictated note~for this date of service dictated separately.~Patient seen individually. Discussed the patient with Nursing staff reviewed the chart.~Reviewed interim history and current functioning. Reviewed vital signs,~Labs/ Radiology~and current medications noted below. Continue current treatment with the changes noted in the dictated addendum note Assessment: Vital Signs: Vital Signs Date Time Temp Pulse Resp B/P Pulse Ox O2 Delivery O2 Flow Rate FiO2 08/25/16 19:34 98.2 67 16 162/62 97 Room Air I&O Intake and Output 08/25/16 07:00 Intake Total 1200 ml Balance 1200 ml Intake Oral 1200 ml # Voids 3 Current Medications: Meds: Current Medications Escitalopram Oxalate (Lexapro) 10 mg DAILY PO Last administered on 08/25/16 08 :19; Start 08/21/16 at 09:00 Lorazepam (Ativan) 1 mg PRN Q6HRS PRN PO ANXIETY / AGITATION Last administered on 08/21/16 16:42; Start 08/20/16 at 16:15; Stop 08/21/16 at 18:21; Status DC Quetiapine Fumarate (SEROquel) 25 mg TID PO Last administered on 08/24/16 13: 02; Start 08/20/16 at 21:00; Stop 08/24/16 at 18:12; Status DC Aspirin (Aspirin Enteric Coated) 81 mg DAILY PO Last administered on 08/25/16 08:18; Start 08/21/16 at 09:00 Clopidogrel Bisulfate (Plavix) 75 mg DAILY PO Last administered on 08/25/16 08 :18; Start 08/21/16 at 09:00 Levothyroxine Sodium (Synthroid) 100 mcg DAILY07 PO Last administered on 06:03; Start 08/21/16 at 07:00; Stop 08/21/16 at 13:17; Status DC Atorvastatin Calcium (Lipitor) 40 mg DAILY PO Last administered on 08/22/16 08: 09; Start 08/21/16 at 09:00; Stop 08/22/16 at 11:20; Status DC Non-Formulary Medication 1 each DAILY PO ; Start 08/21/16 at 09:00; Status UNV Multivitamins/ Calcium (Thera-M Plus) 1 tab DAILY PO Last administered on 08:09; Start 08/21/16 at 09:00; Stop 08/22/16 at 11:20; Status DC Vitamin E 400 unit DAILY PO Last administered on 08/22/16 08:09; Start 08/21/16 at 09:00; Stop 08/22/16 at 11:20; Status DC Calcium Carbonate/ Glycine (Tums) 500 mg DAILY PO Last administered on 08:08; Start 08/21/16 at 09:00; Stop 08/22/16 at 11:20; Status DC Magnesium Oxide (Magnesium Oxide) 400 mg DAILY PO Last administered on 08:09; Start 08/21/16 at 09:00; Stop 08/22/16 at 11:20; Status DC Folic Acid (Folic Acid) 1 mg DAILY PO Last administered on 08/22/16 08:09; Start 08/21/16 at 09:00; Stop 08/22/16 at 11:20; Status DC Acetaminophen (Tylenol) 650 mg PRN Q6HRS PRN PO PAIN / TEMP; Start 08/20/16 at 16:45 Al Hydroxide/Mg Hydroxide (Mylanta Plus Xs) 15 ml PRN AFTMEALHC PRN PO DYSPEPSIA; Start 08/20/16 at 16:45 Magnesium Hydroxide (Milk Of Magnesia) 2,400 mg PRN QHS PRN PO CONSTIPATION; Start 08/20/16 at 16:45 Nicotine (Nicoderm Cq 14mg) 1 patch DAILY TD Last administered on 08/22/16 08: 09; Start 08/21/16 at 09:00 Nicotine (Nicoderm Cq 14mg) 1 patch 1X ONCE TD Last administered on 08/20/16 21:08; Start 08/20/16 at 19:30; Stop 08/20/16 at 19:33; Status DC Metoprolol Succinate (Toprol Xl) 25 mg BID PO Last administered on 08/25/16 19 :31; Start 08/21/16 at 21:00 Cyanocobalamin (Vitamin B-12) 1,000 mcg [id number] IM Last administered on 13:45; Start 08/21/16 at 13:45 Acetaminophen (Tylenol) 650 mg BID PO Last administered on 08/22/16 08:10; Start 08/21/16 at 21:00; Stop 08/22/16 at 11:20; Status DC Lorazepam (Ativan) 0.25 mg PRN Q2HR PRN PO ANXIETY / AGITATION Last administered on 08/24/16 15:13; Start 08/22/16 at 16:15 Buspirone HCl (Buspar) 5 mg BID PO Last administered on 08/22/16 08:09; Start 08/21/16 at 21:00; Stop 08/22/16 at 18:22; Status DC Atorvastatin Calcium (Lipitor) 40 mg HS PO Last administered on 08/25/16 19:32 ; Start 08/23/16 at 21:00 Buspirone HCl (Buspar) 10 mg BID PO Last administered on 08/25/16 19:32; Start 08/22/16 at 21:00 Risperidone (Risperdal) 0.25 mg QHS PO Last administered on 08/25/16 19:31; Start 08/24/16 at 21:00 Active Scripts Active Reported Vitamin E (Vitamin E Acetate) 400 Unit Capsule 400 Unit PO DAILY Seroquel (Quetiapine Fumarate) 25 Mg Tablet 1 Tab PO TID Multi-Vitamin Daily (Multivitamin) 1 Each Tablet 1 Each PO DAILY Metoprolol Succinate ( Xl ) (Metoprolol Succinate) 25 Mg Tab.er.24h 1 Tab PO BID Magnebind 400 Rx Tablet (Calcium Carbonate/Mag Carb/Fa) 1 Each Tablet 1 Each PO DAILY Lorazepam 1 Mg Tablet 1 Mg PO PRN Q6HRS PRN Synthroid (Levothyroxine Sodium) 100 Mcg Tablet 2 Tab PO DAILY Galantamine Hbr 12 Mg Tablet 24 Mg PO DAILY Escitalopram Oxalate 10 Mg Tablet 1 Tab PO DAILY Clopidogrel (Clopidogrel Bisulfate) 75 Mg Tablet 75 Mg PO DAILY Atorvastatin Calcium 40 Mg Tablet 1 Tab PO DAILY Aspirin Ec (Aspirin) 81 Mg Tablet. 1 Tab PO DAILY Amlodipine Besylate 5 Mg Tablet 1 Tab PO DAILY PRINCESS GLASS MD Aug 25, 2016 21:03
--- NOTE | 2016-08-25 22:43 | PN ---
DATE: 08/24/2016 PSYCHIATRIC PROGRESS NOTE This is late entry of 08/24/2016, covers elements not covered in my initial note. SUBJECTIVE: Overall, per nursing report, the patient has been tearful, depressed at times, fearful that she might . She would not get to see her grandchildren, was agitated, paranoid, refused her medications, instigating others to elope, verbally irritable, labile. I had a lengthy telephone conversation on two separate occasions on evening of 08/24/2016 with the patient's daughter, Bradly. Daughter stated the patient had been treated by Dr. Marina, psychiatrist in [place] in the past with diagnosis of major depressive disorder and we will get those records. In addition, the patient did have a fall at the nursing facility, went to [facility]. Daughter indicated she was told CT head was unremarkable. Nursing notes indicate possibility of subdural hematoma at that time and given this discrepancy, we will go ahead and check a CT head on this week and conform from [facility] that in fact she had no subdural at that time. REVIEW OF SYSTEMS: No CV, , pulmonary, eye, ENT system symptoms on review. She slept 7-1/2 hours. MENTAL STATUS EXAMINATION: Oriented to herself. Insight, judgment, recent and remote memory, attention, concentration, fund of knowledge poor, consistent with her diagnosis. IMPRESSION: Major neurocognitive disorder, Alzheimer, vascular with depression, delusions, major depressive disorder with psychotic features, anxiety disorder, unspecified; nondisplaced fracture of left inferior ramus of the pubis. PLAN: Continue BuSpar 10 b.i.d., Lexapro 10 mg a day, Ativan p.r.n. Change Seroquel to Risperdal 0.25 mg at bedtime along with p.r.n. Ativan. Adjust further as clinically indicated. PRINCESS GLASS MD DR: REZA/dank JOB#: [id number] / [id number]
[2016-08-26 05:40] VITALS: BP 122/76
[2016-08-26 07:44] LABS: ALBUMIN 3.4 g/dL (3.4-5.0); ALBUMIN/GLOBULIN RATIO 0.9 (1.0-1.7); CALCIUM 9.2 mg/dL (8.5-10.1); CREATININE 1.1 mg/dL (0.6-1.0); GFR 47.8; MAGNESIUM 2.2 mg/dL (1.8-2.4); POTASSIUM 4.2 mmol/L (3.5-5.1); TOTAL BILIRUBIN 0.8 mg/dL (0.2-1.0); TOTAL PROTEIN 7.1 g/dL (6.4-8.2)
[2016-08-26 07:50] LABS: BASO # 0.2 x10^3/uL (0.0-0.2); BASO % 2 % (0-3); EOS # 0.4 x10^3/uL (0.0-0.7); EOS % 5 % (0-3); HEMATOCRIT 39.2 % (36.0-47.0); HEMOGLOBIN 12.7 g/dL (12.0-15.5); LYMPH # 2.4 x10^3/uL (1.0-4.8); LYMPH % 35 % (24-48); MEAN CORPUSCULAR HEMOGLOBIN 30 pg (25-35); MEAN CORPUSCULAR HGB CONC 33 g/dL (31-37); MEAN CORPUSCULAR VOLUME 92 fL (79-100); MONO # 0.6 x10^3/uL (0.0-1.1); MONO % 10 % (0-9); NEUT # 3.2 x10^3uL (1.8-7.7); NEUT % 48 % (31-73); PLATELET COUNT 141 x10^3/uL (140-400); RED BLOOD COUNT 4.25 x10^6/uL (3.50-5.40); WHITE BLOOD COUNT 6.7 x10^3/uL (4.0-11.0)
[2016-08-26] MEDS: NICOTINE 14MG PATCH. TD SCH ×2 (09:00→09:05)
[2016-08-26] MEDS: METOPROLOL SUCC 24HR ER 25 MG TAB.ER.24H. PO SCH ×3 (09:00→21:00)
[2016-08-26] MEDS: CLOPIDOGREL BISULFATE 75 MG TABLET PO SCH (09:05)
[2016-08-26] MEDS: ESCITALOPRAM 10 MG TABLET. PO SCH (09:05)
[2016-08-26] MEDS: busPIRone 10 MG TABLET. PO SCH ×3 (09:05→21:00)
[2016-08-26] MEDS: ASPIRIN ENTERIC COATED 81 MG TABLET.DR. PO SCH (09:06)
[2016-08-26 15:38] VITALS: BP 131/52
[2016-08-26] MEDS: ATORVASTATIN CALCIUM 20 MG TABLET PO SCH ×2 (19:32→21:00)
[2016-08-26] MEDS: risperiDONE 0.25 MG TABLET. PO SCH ×2 (19:32→21:00)
--- NOTE | 2016-08-26 21:05 | PDOC ---
Exam Scott Demential Exam: Scott Note: Please also refer to the separate dictated note~for this date of service dictated separately.~Patient seen individually. Discussed the patient with Nursing staff reviewed the chart.~Reviewed interim history and current functioning. Reviewed vital signs,~Labs/ Radiology~and current medications noted below. Continue current treatment with the changes noted in the dictated addendum note Assessment: Vital Signs: Vital Signs Date Time Temp Pulse Resp B/P Pulse Ox O2 Delivery O2 Flow Rate FiO2 08/26/16 19:33 56 131/52 08/26/16 15:38 97.8 16 97 08/25/16 19:34 Room Air I&O Intake and Output 08/26/16 07:00 Intake Total 960 ml Balance 960 ml Intake Oral 960 ml # Bowel Movements 1 Labs: Laboratory Tests Test 08/26/16 07:13 White Blood Count 6.7x10^3/uL (4.0-11.0) Red Blood Count 4.25x10^6/uL (3.50-5.40) Hemoglobin 12.7g/dL (12.0-15.5) Hematocrit 39.2% (36.0-47.0) Mean Corpuscular Volume 92fL (79-100) Mean Corpuscular Hemoglobin 30pg (25-35) Mean Corpuscular Hemoglobin Concent 33g/dL (31-37) Red Cell Distribution Width 14.0% (11.5-14.5) Platelet Count 141x10^3/uL (140-400) Neutrophils (%) (Auto) 48% (31-73) Lymphocytes (%) (Auto) 35% (24-48) Monocytes (%) (Auto) 10% (0-9) H Eosinophils (%) (Auto) 5% (0-3) H Basophils (%) (Auto) 2% (0-3) Neutrophils # (Auto) 3.2x10^3uL (1.8-7.7) Lymphocytes # (Auto) 2.4x10^3/uL (1.0-4.8) Monocytes # (Auto) 0.6x10^3/uL (0.0-1.1) Eosinophils # (Auto) 0.4x10^3/uL (0.0-0.7) Basophils # (Auto) 0.2x10^3/uL (0.0-0.2) Sodium Level 145mmol/L (136-145) Potassium Level 4.2mmol/L (3.5-5.1) Chloride Level 110mmol/L (98-107) H Carbon Dioxide Level 29mmol/L (21-32) Anion Gap 6 (6-14) Blood Urea Nitrogen 18mg/dL (7-20) Creatinine 1.1mg/dL (0.6-1.0) H Estimated GFR (Cockcroft-Gault) 47.8 BUN/Creatinine Ratio 16 (6-20) Glucose Level 98mg/dL (70-99) Calcium Level 9.2mg/dL (8.5-10.1) Magnesium Level 2.2mg/dL (1.8-2.4) Total Bilirubin 0.8mg/dL (0.2-1.0) Aspartate Amino Transferase (AST) 22U/L (15-37) Alanine Aminotransferase (ALT) 22U/L (14-59) Alkaline Phosphatase 76U/L (46-116) Total Protein 7.1g/dL (6.4-8.2) Albumin 3.4g/dL (3.4-5.0) Albumin/Globulin Ratio 0.9 (1.0-1.7) L Current Medications: Meds: Current Medications Escitalopram Oxalate (Lexapro) 10 mg DAILY PO Last administered on 08/26/16 09 :05; Start 08/21/16 at 09:00 Lorazepam (Ativan) 1 mg PRN Q6HRS PRN PO ANXIETY / AGITATION Last administered on 08/21/16 16:42; Start 08/20/16 at 16:15; Stop 08/21/16 at 18:21; Status DC Quetiapine Fumarate (SEROquel) 25 mg TID PO Last administered on 08/24/16 13: 02; Start 08/20/16 at 21:00; Stop 08/24/16 at 18:12; Status DC Aspirin (Aspirin Enteric Coated) 81 mg DAILY PO Last administered on 08/26/16 09:06; Start 08/21/16 at 09:00 Clopidogrel Bisulfate (Plavix) 75 mg DAILY PO Last administered on 08/26/16 09 :05; Start 08/21/16 at 09:00 Levothyroxine Sodium (Synthroid) 100 mcg DAILY07 PO Last administered on 06:03; Start 08/21/16 at 07:00; Stop 08/21/16 at 13:17; Status DC Atorvastatin Calcium (Lipitor) 40 mg DAILY PO Last administered on 08/22/16 08: 09; Start 08/21/16 at 09:00; Stop 08/22/16 at 11:20; Status DC Non-Formulary Medication 1 each DAILY PO ; Start 08/21/16 at 09:00; Status UNV Multivitamins/ Calcium (Thera-M Plus) 1 tab DAILY PO Last administered on 08:09; Start 08/21/16 at 09:00; Stop 08/22/16 at 11:20; Status DC Vitamin E 400 unit DAILY PO Last administered on 08/22/16 08:09; Start 08/21/16 at 09:00; Stop 08/22/16 at 11:20; Status DC Calcium Carbonate/ Glycine (Tums) 500 mg DAILY PO Last administered on 08:08; Start 08/21/16 at 09:00; Stop 08/22/16 at 11:20; Status DC Magnesium Oxide (Magnesium Oxide) 400 mg DAILY PO Last administered on 08:09; Start 08/21/16 at 09:00; Stop 08/22/16 at 11:20; Status DC Folic Acid (Folic Acid) 1 mg DAILY PO Last administered on 08/22/16 08:09; Start 08/21/16 at 09:00; Stop 08/22/16 at 11:20; Status DC Acetaminophen (Tylenol) 650 mg PRN Q6HRS PRN PO PAIN / TEMP; Start 08/20/16 at 16:45 Al Hydroxide/Mg Hydroxide (Mylanta Plus Xs) 15 ml PRN AFTMEALHC PRN PO DYSPEPSIA; Start 08/20/16 at 16:45 Magnesium Hydroxide (Milk Of Magnesia) 2,400 mg PRN QHS PRN PO CONSTIPATION; Start 08/20/16 at 16:45 Nicotine (Nicoderm Cq 14mg) 1 patch DAILY TD Last administered on 08/22/16 08: 09; Start 08/21/16 at 09:00 Nicotine (Nicoderm Cq 14mg) 1 patch 1X ONCE TD Last administered on 08/20/16 21:08; Start 08/20/16 at 19:30; Stop 08/20/16 at 19:33; Status DC Metoprolol Succinate (Toprol Xl) 25 mg BID PO Last administered on 08/26/16 19 :33; Start 08/21/16 at 21:00 Cyanocobalamin (Vitamin B-12) 1,000 mcg [id number] IM Last administered on 13:45; Start 08/21/16 at 13:45 Acetaminophen (Tylenol) 650 mg BID PO Last administered on 08/22/16 08:10; Start 08/21/16 at 21:00; Stop 08/22/16 at 11:20; Status DC Lorazepam (Ativan) 0.25 mg PRN Q2HR PRN PO ANXIETY / AGITATION Last administered on 08/24/16 15:13; Start 08/22/16 at 16:15 Buspirone HCl (Buspar) 5 mg BID PO Last administered on 08/22/16 08:09; Start 08/21/16 at 21:00; Stop 08/22/16 at 18:22; Status DC Atorvastatin Calcium (Lipitor) 40 mg HS PO Last administered on 08/26/16 19:32 ; Start 08/23/16 at 21:00 Buspirone HCl (Buspar) 10 mg BID PO Last administered on 08/26/16 19:32; Start 08/22/16 at 21:00 Risperidone (Risperdal) 0.25 mg QHS PO Last administered on 08/26/16 19:32; Start 08/24/16 at 21:00 Active Scripts Active Reported Vitamin E (Vitamin E Acetate) 400 Unit Capsule 400 Unit PO DAILY Seroquel (Quetiapine Fumarate) 25 Mg Tablet 1 Tab PO TID Multi-Vitamin Daily (Multivitamin) 1 Each Tablet 1 Each PO DAILY Metoprolol Succinate ( Xl ) (Metoprolol Succinate) 25 Mg Tab.er.24h 1 Tab PO BID Magnebind 400 Rx Tablet (Calcium Carbonate/Mag Carb/Fa) 1 Each Tablet 1 Each PO DAILY Lorazepam 1 Mg Tablet 1 Mg PO PRN Q6HRS PRN Synthroid (Levothyroxine Sodium) 100 Mcg Tablet 2 Tab PO DAILY Galantamine Hbr 12 Mg Tablet 24 Mg PO DAILY Escitalopram Oxalate 10 Mg Tablet 1 Tab PO DAILY Clopidogrel (Clopidogrel Bisulfate) 75 Mg Tablet 75 Mg PO DAILY Atorvastatin Calcium 40 Mg Tablet 1 Tab PO DAILY Aspirin Ec (Aspirin) 81 Mg Tablet. 1 Tab PO DAILY Amlodipine Besylate 5 Mg Tablet 1 Tab PO DAILY PRINCESS GLASS MD Aug 26, 2016 21:05
[2016-08-27 06:06] LABS: BACTERIA,URINE FEW /HPF (0-FEW); BILIRUBIN,URINE NEG (NEG); CLARITY,URINE CLEAR; COLOR,URINE YELLOW; GLUCOSE,URINE NEG (NEG); NITRITE,URINE NEG (NEG); RBC,URINE OCC /HPF (0-2); SQUAMOUS EPITHELIAL CELL,UR FEW /LPF; UROBILINOGEN,URINE 0.2 mg/dL (0.2 mg/dL)
[2016-08-27 06:31] VITALS: BP 149/69
[2016-08-27] MEDS: NICOTINE 14MG PATCH. TD SCH (09:00)
[2016-08-27] MEDS: METOPROLOL SUCC 24HR ER 25 MG TAB.ER.24H. PO SCH ×4 (09:00→22:48)
[2016-08-27] MEDS: ESCITALOPRAM 10 MG TABLET. PO SCH (09:16)
[2016-08-27] MEDS: CLOPIDOGREL BISULFATE 75 MG TABLET PO SCH (09:16)
[2016-08-27] MEDS: busPIRone 10 MG TABLET. PO SCH ×4 (09:16→22:49)
[2016-08-27] MEDS: ASPIRIN ENTERIC COATED 81 MG TABLET.DR. PO SCH (09:25)
[2016-08-27 15:53] VITALS: BP 159/52
--- NOTE | 2016-08-27 20:06 | PDOC ---
Exam Scott Demential Exam: Scott Note: Please also refer to the separate dictated note~for this date of service dictated separately.~Patient seen individually. Discussed the patient with Nursing staff reviewed the chart.~Reviewed interim history and current functioning. Reviewed vital signs,~Labs/ Radiology~and current medications noted below. Continue current treatment with the changes noted in the dictated addendum note Assessment: Vital Signs: Vital Signs Date Time Temp Pulse Resp B/P Pulse Ox O2 Delivery O2 Flow Rate FiO2 08/27/16 15:53 97.1 59 16 159/52 96 08/25/16 19:34 Room Air I&O Intake and Output 08/27/16 07:00 Intake Total 720 ml Balance 720 ml Intake Oral 720 ml Labs: Laboratory Tests Test 08/27/16 05:40 Urine Collection Type Unknown Urine Color Yellow Urine Clarity Clear Urine pH 5.5 Urine Specific [place] 1.010 Urine Protein Trace (NEG-TRACE) Urine Glucose (UA) Negmg/dL (NEG) Urine Ketones (Stick) Negmg/dL (NEG) Urine Blood Trace (NEG) Urine Nitrite Neg (NEG) Urine Bilirubin Neg (NEG) Urine Urobilinogen Dipstick 0.2mg/dL (0.2 mg/dL) Urine Leukocyte Esterase Small (NEG) Urine RBC Occ/HPF (0-2) Urine WBC 1-4/HPF (0-4) Urine Squamous Epithelial Cells Few/LPF Urine Bacteria Few/HPF (0-FEW) Current Medications: Meds: Current Medications Escitalopram Oxalate (Lexapro) 10 mg DAILY PO Last administered on 08/27/16 09 :16; Start 08/21/16 at 09:00 Lorazepam (Ativan) 1 mg PRN Q6HRS PRN PO ANXIETY / AGITATION Last administered on 08/21/16 16:42; Start 08/20/16 at 16:15; Stop 08/21/16 at 18:21; Status DC Quetiapine Fumarate (SEROquel) 25 mg TID PO Last administered on 08/24/16 13: 02; Start 08/20/16 at 21:00; Stop 08/24/16 at 18:12; Status DC Aspirin (Aspirin Enteric Coated) 81 mg DAILY PO Last administered on 08/27/16 09:25; Start 08/21/16 at 09:00 Clopidogrel Bisulfate (Plavix) 75 mg DAILY PO Last administered on 08/27/16 09 :16; Start 08/21/16 at 09:00 Levothyroxine Sodium (Synthroid) 100 mcg DAILY07 PO Last administered on 06:03; Start 08/21/16 at 07:00; Stop 08/21/16 at 13:17; Status DC Atorvastatin Calcium (Lipitor) 40 mg DAILY PO Last administered on 08/22/16 08: 09; Start 08/21/16 at 09:00; Stop 08/22/16 at 11:20; Status DC Non-Formulary Medication 1 each DAILY PO ; Start 08/21/16 at 09:00; Status UNV Multivitamins/ Calcium (Thera-M Plus) 1 tab DAILY PO Last administered on 08:09; Start 08/21/16 at 09:00; Stop 08/22/16 at 11:20; Status DC Vitamin E 400 unit DAILY PO Last administered on 08/22/16 08:09; Start 08/21/16 at 09:00; Stop 08/22/16 at 11:20; Status DC Calcium Carbonate/ Glycine (Tums) 500 mg DAILY PO Last administered on 08:08; Start 08/21/16 at 09:00; Stop 08/22/16 at 11:20; Status DC Magnesium Oxide (Magnesium Oxide) 400 mg DAILY PO Last administered on 08:09; Start 08/21/16 at 09:00; Stop 08/22/16 at 11:20; Status DC Folic Acid (Folic Acid) 1 mg DAILY PO Last administered on 08/22/16 08:09; Start 08/21/16 at 09:00; Stop 08/22/16 at 11:20; Status DC Acetaminophen (Tylenol) 650 mg PRN Q6HRS PRN PO PAIN / TEMP; Start 08/20/16 at 16:45 Al Hydroxide/Mg Hydroxide (Mylanta Plus Xs) 15 ml PRN AFTMEALHC PRN PO DYSPEPSIA; Start 08/20/16 at 16:45 Magnesium Hydroxide (Milk Of Magnesia) 2,400 mg PRN QHS PRN PO CONSTIPATION; Start 08/20/16 at 16:45 Nicotine (Nicoderm Cq 14mg) 1 patch DAILY TD Last administered on 08/22/16 08: 09; Start 08/21/16 at 09:00 Nicotine (Nicoderm Cq 14mg) 1 patch 1X ONCE TD Last administered on 08/20/16 21:08; Start 08/20/16 at 19:30; Stop 08/20/16 at 19:33; Status DC Metoprolol Succinate (Toprol Xl) 25 mg BID PO Last administered on 08/26/16 09 :00; Start 08/21/16 at 21:00 Cyanocobalamin (Vitamin B-12) 1,000 mcg [id number] IM Last administered on 13:45; Start 08/21/16 at 13:45 Acetaminophen (Tylenol) 650 mg BID PO Last administered on 08/22/16 08:10; Start 08/21/16 at 21:00; Stop 08/22/16 at 11:20; Status DC Lorazepam (Ativan) 0.25 mg PRN Q2HR PRN PO ANXIETY / AGITATION Last administered on 08/24/16 15:13; Start 08/22/16 at 16:15 Buspirone HCl (Buspar) 5 mg BID PO Last administered on 08/22/16 08:09; Start 08/21/16 at 21:00; Stop 08/22/16 at 18:22; Status DC Atorvastatin Calcium (Lipitor) 40 mg HS PO Last administered on 08/25/16 19:32 ; Start 08/23/16 at 21:00 Buspirone HCl (Buspar) 10 mg BID PO Last administered on 08/27/16 09:16; Start 08/22/16 at 21:00 Risperidone (Risperdal) 0.25 mg QHS PO Last administered on 08/25/16 19:31; Start 08/24/16 at 21:00; Stop 08/27/16 at 18:34; Status DC Risperidone (Risperdal) 0.375 mg HS PO ; Start 08/27/16 at 21:00 Active Scripts Active Reported Vitamin E (Vitamin E Acetate) 400 Unit Capsule 400 Unit PO DAILY Seroquel (Quetiapine Fumarate) 25 Mg Tablet 1 Tab PO TID Multi-Vitamin Daily (Multivitamin) 1 Each Tablet 1 Each PO DAILY Metoprolol Succinate ( Xl ) (Metoprolol Succinate) 25 Mg Tab.er.24h 1 Tab PO BID Magnebind 400 Rx Tablet (Calcium Carbonate/Mag Carb/Fa) 1 Each Tablet 1 Each PO DAILY Lorazepam 1 Mg Tablet 1 Mg PO PRN Q6HRS PRN Synthroid (Levothyroxine Sodium) 100 Mcg Tablet 2 Tab PO DAILY Galantamine Hbr 12 Mg Tablet 24 Mg PO DAILY Escitalopram Oxalate 10 Mg Tablet 1 Tab PO DAILY Clopidogrel (Clopidogrel Bisulfate) 75 Mg Tablet 75 Mg PO DAILY Atorvastatin Calcium 40 Mg Tablet 1 Tab PO DAILY Aspirin Ec (Aspirin) 81 Mg Tablet. 1 Tab PO DAILY Amlodipine Besylate 5 Mg Tablet 1 Tab PO DAILY PRINCESS GLASS MD Aug 27, 2016 20:06
[2016-08-27] MEDS: risperiDONE 0.25 MG TABLET. PO SCH ×3 (20:19→22:49)
[2016-08-27] MEDS: ATORVASTATIN CALCIUM 20 MG TABLET PO SCH ×3 (20:21→22:50)
--- NOTE | 2016-08-28 00:46 | PN ---
DATE: 08/25/2016 PSYCHIATRIC PROGRESS NOTE This is late entry of 08/25/2016, covers elements not covered in my initial note. SUBJECTIVE: The patient's CT head shows no acute changes, though there are chronic changes. She has been confused, forgetful, repetitive, trying to elope from the unit, instigating others to do the same. Reviewed past psychiatric records from her outpatient psychiatrist, which indicated that diagnosis of dementia together with depression and psychotic symptoms and she had been treated on Zoloft and Wellbutrin in the past. REVIEW OF SYSTEMS: No CV, , pulmonary, eye, ENT system symptoms on review. She does have pubic ramus fracture, but ambulates on her own, does not complain of pain. MENTAL STATUS EXAMINATION: Oriented to herself and situation. Speech is coherent, abstraction fair, computation impaired, language function intact. Short term memory is impaired. Mood and affect remain somewhat anxious, labile. LABORATORY DATA: Reviewed. IMPRESSION: Unchanged from initial note. PLAN: Continue Lexapro 10 mg a day, Ativan p.r.n., BuSpar 10 b.i.d., Risperdal 0.25 mg at bedtime and Ativan p.r.n., adjust further as clinically indicated. PRINCESS GLASS MD DR: REZA/dank JOB#: [id number] / [id number]
--- NOTE | 2016-08-28 00:54 | PN ---
DATE: 08/26/2016 PSYCHIATRIC PROGRESS NOTE This is late entry of 08/26/2016, covers elements not covered in my initial note. SUBJECTIVE: The patient was staffed at treatment team meeting with the entire team morning of 08/26/2016 along with the patient's daughter, Mar and son, Jean-Paul attending. Lengthy discussion about her diagnosis results of CT head, past records, current treatment and her history. She was living at home with in-home care, then was at [facility] from where she eloped and then was at [place] for 5 days and behaviors were marked with her attempts to elope, worsening confusion. Discussed current medications and discharge plans. REVIEW OF SYSTEMS: No CV, , pulmonary, eye, ENT system symptoms on review. The patient is irritable at times, talking down to staff, at times takes her meds in food. UA will be repeated. She does have an inferior pubic ramus fracture, but does not complain of pain. MENTAL STATUS EXAMINATION: Oriented to herself and situation at times. Speech is coherent, still somewhat paranoid, abstraction fair, computation impaired, language function intact, attention span short. Mood and affect somewhat anxious, labile at times. LABORATORY DATA: Reviewed. 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 PLAN: Continue current psychotropics, BuSpar 10 b.i.d., Risperdal 0.25 mg at bedtime, Lexapro 10 mg a day, Ativan p.r.n. Adjust further as clinically indicated. MAN Ernesto GLASS MD DR: REZA/dank JOB#: [id number] / [id number]
[2016-08-28 06:35] VITALS: BP 143/62
[2016-08-28] MEDS: NICOTINE 14MG PATCH. TD SCH (08:35)
[2016-08-28] MEDS: CLOPIDOGREL BISULFATE 75 MG TABLET PO SCH (08:36)
[2016-08-28] MEDS: ASPIRIN ENTERIC COATED 81 MG TABLET.DR. PO SCH (08:36)
[2016-08-28] MEDS: busPIRone 10 MG TABLET. PO SCH ×2 (08:36→19:48)
[2016-08-28] MEDS: ESCITALOPRAM 10 MG TABLET. PO SCH (08:36)
[2016-08-28] MEDS: METOPROLOL SUCC 24HR ER 25 MG TAB.ER.24H. PO SCH ×2 (09:00→19:48)
[2016-08-28 15:55] VITALS: BP 134/66
[2016-08-28] MEDS: ATORVASTATIN CALCIUM 20 MG TABLET PO SCH (19:47)
[2016-08-28] MEDS: risperiDONE 0.25 MG TABLET. PO SCH (19:47)
--- NOTE | 2016-08-28 22:03 | PDOC ---
Exam Scott Demential Exam: Scott Note: Please also refer to the separate dictated note~for this date of service dictated separately.~Patient seen individually. Discussed the patient with Nursing staff reviewed the chart.~Reviewed interim history and current functioning. Reviewed vital signs,~Labs/ Radiology~and current medications noted below. Continue current treatment with the changes noted in the dictated addendum note Assessment: Vital Signs: Vital Signs Date Time Temp Pulse Resp B/P Pulse Ox O2 Delivery O2 Flow Rate FiO2 08/28/16 19:48 64 134/66 08/28/16 15:55 97.0 18 96 Room Air I&O Intake and Output 08/28/16 07:00 Intake Total 1080 ml Balance 1080 ml Intake Oral 1080 ml Current Medications: Meds: Current Medications Escitalopram Oxalate (Lexapro) 10 mg DAILY PO Last administered on 08/28/16 08 :36; Start 08/21/16 at 09:00 Lorazepam (Ativan) 1 mg PRN Q6HRS PRN PO ANXIETY / AGITATION Last administered on 08/21/16 16:42; Start 08/20/16 at 16:15; Stop 08/21/16 at 18:21; Status DC Quetiapine Fumarate (SEROquel) 25 mg TID PO Last administered on 08/24/16 13: 02; Start 08/20/16 at 21:00; Stop 08/24/16 at 18:12; Status DC Aspirin (Aspirin Enteric Coated) 81 mg DAILY PO Last administered on 08/28/16 08:36; Start 08/21/16 at 09:00 Clopidogrel Bisulfate (Plavix) 75 mg DAILY PO Last administered on 08/28/16 08 :36; Start 08/21/16 at 09:00 Levothyroxine Sodium (Synthroid) 100 mcg DAILY07 PO Last administered on 06:03; Start 08/21/16 at 07:00; Stop 08/21/16 at 13:17; Status DC Atorvastatin Calcium (Lipitor) 40 mg DAILY PO Last administered on 08/22/16 08: 09; Start 08/21/16 at 09:00; Stop 08/22/16 at 11:20; Status DC Non-Formulary Medication 1 each DAILY PO ; Start 08/21/16 at 09:00; Status UNV Multivitamins/ Calcium (Thera-M Plus) 1 tab DAILY PO Last administered on 08:09; Start 08/21/16 at 09:00; Stop 08/22/16 at 11:20; Status DC Vitamin E 400 unit DAILY PO Last administered on 08/22/16 08:09; Start 08/21/16 at 09:00; Stop 08/22/16 at 11:20; Status DC Calcium Carbonate/ Glycine (Tums) 500 mg DAILY PO Last administered on 08:08; Start 08/21/16 at 09:00; Stop 08/22/16 at 11:20; Status DC Magnesium Oxide (Magnesium Oxide) 400 mg DAILY PO Last administered on 08:09; Start 08/21/16 at 09:00; Stop 08/22/16 at 11:20; Status DC Folic Acid (Folic Acid) 1 mg DAILY PO Last administered on 08/22/16 08:09; Start 08/21/16 at 09:00; Stop 08/22/16 at 11:20; Status DC Acetaminophen (Tylenol) 650 mg PRN Q6HRS PRN PO PAIN / TEMP; Start 08/20/16 at 16:45 Al Hydroxide/Mg Hydroxide (Mylanta Plus Xs) 15 ml PRN AFTMEALHC PRN PO DYSPEPSIA; Start 08/20/16 at 16:45 Magnesium Hydroxide (Milk Of Magnesia) 2,400 mg PRN QHS PRN PO CONSTIPATION; Start 08/20/16 at 16:45 Nicotine (Nicoderm Cq 14mg) 1 patch DAILY TD Last administered on 08/28/16 08: 35; Start 08/21/16 at 09:00 Nicotine (Nicoderm Cq 14mg) 1 patch 1X ONCE TD Last administered on 08/20/16 21:08; Start 08/20/16 at 19:30; Stop 08/20/16 at 19:33; Status DC Metoprolol Succinate (Toprol Xl) 25 mg BID PO Last administered on 08/28/16 19 :48; Start 08/21/16 at 21:00 Cyanocobalamin (Vitamin B-12) 1,000 mcg [id number] IM Last administered on 13:45; Start 08/21/16 at 13:45 Acetaminophen (Tylenol) 650 mg BID PO Last administered on 08/22/16 08:10; Start 08/21/16 at 21:00; Stop 08/22/16 at 11:20; Status DC Lorazepam (Ativan) 0.25 mg PRN Q2HR PRN PO ANXIETY / AGITATION Last administered on 08/24/16 15:13; Start 08/22/16 at 16:15 Buspirone HCl (Buspar) 5 mg BID PO Last administered on 08/22/16 08:09; Start 08/21/16 at 21:00; Stop 08/22/16 at 18:22; Status DC Atorvastatin Calcium (Lipitor) 40 mg HS PO Last administered on 08/28/16 19:47 ; Start 08/23/16 at 21:00 Buspirone HCl (Buspar) 10 mg BID PO Last administered on 08/28/16 19:48; Start 08/22/16 at 21:00 Risperidone (Risperdal) 0.25 mg QHS PO Last administered on 08/25/16 19:31; Start 08/24/16 at 21:00; Stop 08/27/16 at 18:34; Status DC Risperidone (Risperdal) 0.375 mg HS PO Last administered on 08/28/16 19:47; Start 08/27/16 at 21:00 Active Scripts Active Reported Vitamin E (Vitamin E Acetate) 400 Unit Capsule 400 Unit PO DAILY Seroquel (Quetiapine Fumarate) 25 Mg Tablet 1 Tab PO TID Multi-Vitamin Daily (Multivitamin) 1 Each Tablet 1 Each PO DAILY Metoprolol Succinate ( Xl ) (Metoprolol Succinate) 25 Mg Tab.er.24h 1 Tab PO BID Magnebind 400 Rx Tablet (Calcium Carbonate/Mag Carb/Fa) 1 Each Tablet 1 Each PO DAILY Lorazepam 1 Mg Tablet 1 Mg PO PRN Q6HRS PRN Synthroid (Levothyroxine Sodium) 100 Mcg Tablet 2 Tab PO DAILY Galantamine Hbr 12 Mg Tablet 24 Mg PO DAILY Escitalopram Oxalate 10 Mg Tablet 1 Tab PO DAILY Clopidogrel (Clopidogrel Bisulfate) 75 Mg Tablet 75 Mg PO DAILY Atorvastatin Calcium 40 Mg Tablet 1 Tab PO DAILY Aspirin Ec (Aspirin) 81 Mg Tablet. 1 Tab PO DAILY Amlodipine Besylate 5 Mg Tablet 1 Tab PO DAILY PRINCESS GLASS MD Aug 28, 2016 22:03
[2016-08-29 06:14] VITALS: BP 121/56
[2016-08-29] MEDS: NICOTINE 14MG PATCH. TD SCH ×2 (09:00→09:05)
[2016-08-29] MEDS: busPIRone 10 MG TABLET. PO SCH ×2 (09:04→19:27)
[2016-08-29] MEDS: ESCITALOPRAM 10 MG TABLET. PO SCH (09:05)
[2016-08-29] MEDS: ASPIRIN ENTERIC COATED 81 MG TABLET.DR. PO SCH (09:05)
[2016-08-29] MEDS: CLOPIDOGREL BISULFATE 75 MG TABLET PO SCH (09:05)
[2016-08-29 09:11] VITALS: BP 126/64
[2016-08-29] MEDS: METOPROLOL SUCC 24HR ER 25 MG TAB.ER.24H. PO SCH ×2 (09:13→19:28)
[2016-08-29 16:11] VITALS: BP 181/67
[2016-08-29] MEDS: ATORVASTATIN CALCIUM 20 MG TABLET PO SCH (19:27)
[2016-08-29] MEDS: risperiDONE 0.25 MG TABLET. PO SCH (19:29)
--- NOTE | 2016-08-29 21:25 | PDOC ---
Exam Scott Demential Exam: Sctot Note: Please also refer to the separate dictated note~for this date of service dictated separately.~Patient seen individually. Discussed the patient with Nursing staff reviewed the chart.~Reviewed interim history and current functioning. Reviewed vital signs,~Labs/ Radiology~and current medications noted below. Continue current treatment with the changes noted in the dictated addendum note Assessment: Vital Signs: Vital Signs Date Time Temp Pulse Resp B/P Pulse Ox O2 Delivery O2 Flow Rate FiO2 08/29/16 19:28 63 181/67 08/29/16 16:11 97.6 18 96 08/29/16 09:11 Room Air I&O Intake and Output 08/29/16 07:00 Intake Total 600 ml Balance 600 ml Intake Oral 600 ml Current Medications: Meds: Current Medications Escitalopram Oxalate (Lexapro) 10 mg DAILY PO Last administered on 08/29/16 09 :05; Start 08/21/16 at 09:00 Lorazepam (Ativan) 1 mg PRN Q6HRS PRN PO ANXIETY / AGITATION Last administered on 08/21/16 16:42; Start 08/20/16 at 16:15; Stop 08/21/16 at 18:21; Status DC Quetiapine Fumarate (SEROquel) 25 mg TID PO Last administered on 08/24/16 13: 02; Start 08/20/16 at 21:00; Stop 08/24/16 at 18:12; Status DC Aspirin (Aspirin Enteric Coated) 81 mg DAILY PO Last administered on 08/29/16 09:05; Start 08/21/16 at 09:00 Clopidogrel Bisulfate (Plavix) 75 mg DAILY PO Last administered on 08/29/16 09 :05; Start 08/21/16 at 09:00 Levothyroxine Sodium (Synthroid) 100 mcg DAILY07 PO Last administered on 06:03; Start 08/21/16 at 07:00; Stop 08/21/16 at 13:17; Status DC Atorvastatin Calcium (Lipitor) 40 mg DAILY PO Last administered on 08/22/16 08: 09; Start 08/21/16 at 09:00; Stop 08/22/16 at 11:20; Status DC Non-Formulary Medication 1 each DAILY PO ; Start 08/21/16 at 09:00; Status UNV Multivitamins/ Calcium (Thera-M Plus) 1 tab DAILY PO Last administered on 08:09; Start 08/21/16 at 09:00; Stop 08/22/16 at 11:20; Status DC Vitamin E 400 unit DAILY PO Last administered on 08/22/16 08:09; Start 08/21/16 at 09:00; Stop 08/22/16 at 11:20; Status DC Calcium Carbonate/ Glycine (Tums) 500 mg DAILY PO Last administered on 08:08; Start 08/21/16 at 09:00; Stop 08/22/16 at 11:20; Status DC Magnesium Oxide (Magnesium Oxide) 400 mg DAILY PO Last administered on 08:09; Start 08/21/16 at 09:00; Stop 08/22/16 at 11:20; Status DC Folic Acid (Folic Acid) 1 mg DAILY PO Last administered on 08/22/16 08:09; Start 08/21/16 at 09:00; Stop 08/22/16 at 11:20; Status DC Acetaminophen (Tylenol) 650 mg PRN Q6HRS PRN PO PAIN / TEMP; Start 08/20/16 at 16:45 Al Hydroxide/Mg Hydroxide (Mylanta Plus Xs) 15 ml PRN AFTMEALHC PRN PO DYSPEPSIA; Start 08/20/16 at 16:45 Magnesium Hydroxide (Milk Of Magnesia) 2,400 mg PRN QHS PRN PO CONSTIPATION; Start 08/20/16 at 16:45 Nicotine (Nicoderm Cq 14mg) 1 patch DAILY TD Last administered on 08/28/16 08: 35; Start 08/21/16 at 09:00 Nicotine (Nicoderm Cq 14mg) 1 patch 1X ONCE TD Last administered on 08/20/16 21:08; Start 08/20/16 at 19:30; Stop 08/20/16 at 19:33; Status DC Metoprolol Succinate (Toprol Xl) 25 mg BID PO Last administered on 08/29/16 19 :28; Start 08/21/16 at 21:00 Cyanocobalamin (Vitamin B-12) 1,000 mcg [id number] IM Last administered on 13:45; Start 08/21/16 at 13:45 Acetaminophen (Tylenol) 650 mg BID PO Last administered on 08/22/16 08:10; Start 08/21/16 at 21:00; Stop 08/22/16 at 11:20; Status DC Lorazepam (Ativan) 0.25 mg PRN Q2HR PRN PO ANXIETY / AGITATION Last administered on 08/24/16 15:13; Start 08/22/16 at 16:15 Buspirone HCl (Buspar) 5 mg BID PO Last administered on 08/22/16 08:09; Start 08/21/16 at 21:00; Stop 08/22/16 at 18:22; Status DC Atorvastatin Calcium (Lipitor) 40 mg HS PO Last administered on 08/29/16 19:27 ; Start 08/23/16 at 21:00 Buspirone HCl (Buspar) 10 mg BID PO Last administered on 08/29/16 19:27; Start 08/22/16 at 21:00 Risperidone (Risperdal) 0.25 mg QHS PO Last administered on 08/25/16 19:31; Start 08/24/16 at 21:00; Stop 08/27/16 at 18:34; Status DC Risperidone (Risperdal) 0.375 mg HS PO Last administered on 08/29/16 19:29; Start 08/27/16 at 21:00 Active Scripts Active Reported Vitamin E (Vitamin E Acetate) 400 Unit Capsule 400 Unit PO DAILY Seroquel (Quetiapine Fumarate) 25 Mg Tablet 1 Tab PO TID Multi-Vitamin Daily (Multivitamin) 1 Each Tablet 1 Each PO DAILY Metoprolol Succinate ( Xl ) (Metoprolol Succinate) 25 Mg Tab.er.24h 1 Tab PO BID Magnebind 400 Rx Tablet (Calcium Carbonate/Mag Carb/Fa) 1 Each Tablet 1 Each PO DAILY Lorazepam 1 Mg Tablet 1 Mg PO PRN Q6HRS PRN Synthroid (Levothyroxine Sodium) 100 Mcg Tablet 2 Tab PO DAILY Galantamine Hbr 12 Mg Tablet 24 Mg PO DAILY Escitalopram Oxalate 10 Mg Tablet 1 Tab PO DAILY Clopidogrel (Clopidogrel Bisulfate) 75 Mg Tablet 75 Mg PO DAILY Atorvastatin Calcium 40 Mg Tablet 1 Tab PO DAILY Aspirin Ec (Aspirin) 81 Mg Tablet. 1 Tab PO DAILY Amlodipine Besylate 5 Mg Tablet 1 Tab PO DAILY PRINCESS GLASS MD Aug 29, 2016 21:25
--- NOTE | 2016-08-29 21:35 | PN ---
DATE: 08/27/2016 PSYCHIATRIC PROGRESS NOTE This is late entry of 08/27/2016, covers elements not covered in my initial note. SUBJECTIVE: The patient has been suspicious, anxious, confused, minimizes memory problems as I met with her. She felt the year was 2011, angry, agitated as I was asking her orientation questions, refused bedtime meds the previous night, took them on 08/27/2016. REVIEW OF SYSTEMS: No CV, , pulmonary, eye, ENT system symptoms on review. Reliability poor. MENTAL STATUS EXAMINATION: Oriented to herself and situation. Speech has moderate latency, often responses monosyllabic. Abstraction fair, computation impaired, language function intact. Mood and affect still somewhat withdrawn. LABORATORY DATA: Reviewed. IMPRESSION: Unchanged from initial note. PLAN: Increase Risperdal from 0.25 mg at bedtime to 0.375 mg at bedtime. Make further adjustments as clinically indicated. MAN Ernesto GLASS MD DR: REZA/dank JOB#: [id number] / [id number]
--- NOTE | 2016-08-29 21:42 | PN ---
DATE: 08/28/2016 PSYCHIATRIC PROGRESS NOTE This is a late entry for 08/28/2016, covers elements not covered in my initial note. SUBJECTIVE: The patient remains paranoid, resistive to medications in the evening, made vague statements to nursing staff "I might as well ." When I questioned her directly on this, she denies suicidal ideation, just expressed frustration at her situation, but limited insight into memory deficits. REVIEW OF SYSTEMS: No CV, , pulmonary, eye system symptoms on review. MENTAL STATUS EXAM: Oriented to herself and situation. Speech moderate latency, often responses monosyllabic. Abstraction fair, computation impaired, language function intact. Mood and affect somewhat labile, anxious. LABORATORY DATA: Reviewed. IMPRESSION: Unchanged from initial note. PLAN: Continue current psychotropics. Adjust as indicated. MAN Ernesto GLASS MD DR: REZA/dank JOB#: [id number] / [id number]
[2016-08-30 06:13] VITALS: BP 151/76
[2016-08-30] MEDS: NICOTINE 14MG PATCH. TD SCH ×2 (09:00→09:14)
[2016-08-30] MEDS: METOPROLOL SUCC 24HR ER 25 MG TAB.ER.24H. PO SCH ×2 (09:13→19:15)
[2016-08-30] MEDS: ASPIRIN ENTERIC COATED 81 MG TABLET.DR. PO SCH (09:13)
[2016-08-30] MEDS: CLOPIDOGREL BISULFATE 75 MG TABLET PO SCH (09:14)
[2016-08-30] MEDS: busPIRone 10 MG TABLET. PO SCH ×2 (09:14→19:15)
[2016-08-30] MEDS: ESCITALOPRAM 10 MG TABLET. PO SCH (09:14)
[2016-08-30] MEDS: ATORVASTATIN CALCIUM 20 MG TABLET PO SCH (19:15)
[2016-08-30] MEDS: risperiDONE 0.25 MG TABLET. PO SCH (19:15)
--- NOTE | 2016-08-30 20:58 | PDOC ---
Exam Scott Demential Exam: Scott Note: Please also refer to the separate dictated note~for this date of service dictated separately.~Patient seen individually. Discussed the patient with Nursing staff reviewed the chart.~Reviewed interim history and current functioning. Reviewed vital signs,~Labs/ Radiology~and current medications noted below. Continue current treatment with the changes noted in the dictated addendum note Assessment: Vital Signs: Vital Signs Date Time Temp Pulse Resp B/P Pulse Ox O2 Delivery O2 Flow Rate FiO2 08/30/16 19:15 61 151/76 08/30/16 06:13 98.1 14 96 08/29/16 09:11 Room Air I&O Intake and Output 08/30/16 07:00 Intake Total 840 ml Balance 840 ml Intake Oral 840 ml Labs: Laboratory Tests Test 08/30/16 06:40 Thyroid Stimulating Hormone (TSH) 0.405uIU/mL (0.358-3.740) Current Medications: Meds: Current Medications Escitalopram Oxalate (Lexapro) 10 mg DAILY PO Last administered on 08/30/16 09 :14; Start 08/21/16 at 09:00 Lorazepam (Ativan) 1 mg PRN Q6HRS PRN PO ANXIETY / AGITATION Last administered on 08/21/16 16:42; Start 08/20/16 at 16:15; Stop 08/21/16 at 18:21; Status DC Quetiapine Fumarate (SEROquel) 25 mg TID PO Last administered on 08/24/16 13: 02; Start 08/20/16 at 21:00; Stop 08/24/16 at 18:12; Status DC Aspirin (Aspirin Enteric Coated) 81 mg DAILY PO Last administered on 08/30/16 09:13; Start 08/21/16 at 09:00 Clopidogrel Bisulfate (Plavix) 75 mg DAILY PO Last administered on 08/30/16 09 :14; Start 08/21/16 at 09:00 Levothyroxine Sodium (Synthroid) 100 mcg DAILY07 PO Last administered on 06:03; Start 08/21/16 at 07:00; Stop 08/21/16 at 13:17; Status DC Atorvastatin Calcium (Lipitor) 40 mg DAILY PO Last administered on 08/22/16 08: 09; Start 08/21/16 at 09:00; Stop 08/22/16 at 11:20; Status DC Non-Formulary Medication 1 each DAILY PO ; Start 08/21/16 at 09:00; Status UNV Multivitamins/ Calcium (Thera-M Plus) 1 tab DAILY PO Last administered on 08:09; Start 08/21/16 at 09:00; Stop 08/22/16 at 11:20; Status DC Vitamin E 400 unit DAILY PO Last administered on 08/22/16 08:09; Start 08/21/16 at 09:00; Stop 08/22/16 at 11:20; Status DC Calcium Carbonate/ Glycine (Tums) 500 mg DAILY PO Last administered on 08:08; Start 08/21/16 at 09:00; Stop 08/22/16 at 11:20; Status DC Magnesium Oxide (Magnesium Oxide) 400 mg DAILY PO Last administered on 08:09; Start 08/21/16 at 09:00; Stop 08/22/16 at 11:20; Status DC Folic Acid (Folic Acid) 1 mg DAILY PO Last administered on 08/22/16 08:09; Start 08/21/16 at 09:00; Stop 08/22/16 at 11:20; Status DC Acetaminophen (Tylenol) 650 mg PRN Q6HRS PRN PO PAIN / TEMP; Start 08/20/16 at 16:45 Al Hydroxide/Mg Hydroxide (Mylanta Plus Xs) 15 ml PRN AFTMEALHC PRN PO DYSPEPSIA; Start 08/20/16 at 16:45 Magnesium Hydroxide (Milk Of Magnesia) 2,400 mg PRN QHS PRN PO CONSTIPATION; Start 08/20/16 at 16:45 Nicotine (Nicoderm Cq 14mg) 1 patch DAILY TD Last administered on 08/28/16 08: 35; Start 08/21/16 at 09:00 Nicotine (Nicoderm Cq 14mg) 1 patch 1X ONCE TD Last administered on 08/20/16 21:08; Start 08/20/16 at 19:30; Stop 08/20/16 at 19:33; Status DC Metoprolol Succinate (Toprol Xl) 25 mg BID PO Last administered on 08/30/16 19 :15; Start 08/21/16 at 21:00 Cyanocobalamin (Vitamin B-12) 1,000 mcg [id number] IM Last administered on 13:45; Start 08/21/16 at 13:45 Acetaminophen (Tylenol) 650 mg BID PO Last administered on 08/22/16 08:10; Start 08/21/16 at 21:00; Stop 08/22/16 at 11:20; Status DC Lorazepam (Ativan) 0.25 mg PRN Q2HR PRN PO ANXIETY / AGITATION Last administered on 08/24/16 15:13; Start 08/22/16 at 16:15 Buspirone HCl (Buspar) 5 mg BID PO Last administered on 08/22/16 08:09; Start 08/21/16 at 21:00; Stop 08/22/16 at 18:22; Status DC Atorvastatin Calcium (Lipitor) 40 mg HS PO Last administered on 08/30/16 19:15 ; Start 08/23/16 at 21:00 Buspirone HCl (Buspar) 10 mg BID PO Last administered on 08/30/16 19:15; Start 08/22/16 at 21:00 Risperidone (Risperdal) 0.25 mg QHS PO Last administered on 08/25/16 19:31; Start 08/24/16 at 21:00; Stop 08/27/16 at 18:34; Status DC Risperidone (Risperdal) 0.375 mg HS PO Last administered on 08/30/16 19:15; Start 08/27/16 at 21:00 Active Scripts Active Reported Vitamin E (Vitamin E Acetate) 400 Unit Capsule 400 Unit PO DAILY Seroquel (Quetiapine Fumarate) 25 Mg Tablet 1 Tab PO TID Multi-Vitamin Daily (Multivitamin) 1 Each Tablet 1 Each PO DAILY Metoprolol Succinate ( Xl ) (Metoprolol Succinate) 25 Mg Tab.er.24h 1 Tab PO BID Magnebind 400 Rx Tablet (Calcium Carbonate/Mag Carb/Fa) 1 Each Tablet 1 Each PO DAILY Lorazepam 1 Mg Tablet 1 Mg PO PRN Q6HRS PRN Synthroid (Levothyroxine Sodium) 100 Mcg Tablet 2 Tab PO DAILY Galantamine Hbr 12 Mg Tablet 24 Mg PO DAILY Escitalopram Oxalate 10 Mg Tablet 1 Tab PO DAILY Clopidogrel (Clopidogrel Bisulfate) 75 Mg Tablet 75 Mg PO DAILY Atorvastatin Calcium 40 Mg Tablet 1 Tab PO DAILY Aspirin Ec (Aspirin) 81 Mg Tablet. 1 Tab PO DAILY Amlodipine Besylate 5 Mg Tablet 1 Tab PO DAILY PRINCESS GLASS MD Aug 30, 2016 20:58
--- NOTE | 2016-08-30 21:34 | PN ---
DATE: 08/29/2016 PSYCHIATRIC PROGRESS NOTE This is late entry of 08/29/2016, covers elements not covered in my initial note. SUBJECTIVE: Overall, the patient remains confused, minimizes her confusion, gets paranoid, suspicious if questioned on orientation as I did sitting with her in her room on the evening of 08/29/2016. She has been resistive to medications, takes them ultimately. REVIEW OF SYSTEMS: No CV, , pulmonary, eye, ENT system symptoms on review. Reliability poor. MENTAL STATUS EXAMINATION: Oriented to herself and situation at times. Speech coherent, has some latency. Abstraction fair, computation impaired, language function intact. Attention span short. Short term memory is impaired. LABORATORY DATA: Reviewed. IMPRESSION: Unchanged from initial note. PLAN: Continue current psychotropics. Risperdal was increased to 0.375 mg at bedtime. Continue BuSpar, Lexapro, Ativan p.r.n., adjust as indicated clinically. PRINCESS GLASS MD DR: REZA/dank JOB#: [id number] / [id number]
[2016-08-31 06:26] VITALS: BP 110/61
[2016-08-31 06:51] LABS: BASO # 0.2 x10^3/uL (0.0-0.2); BASO % 4 % (0-3); EOS # 0.3 x10^3/uL (0.0-0.7); EOS % 5 % (0-3); HEMATOCRIT 37.8 % (36.0-47.0); HEMOGLOBIN 12.4 g/dL (12.0-15.5); LYMPH # 2.4 x10^3/uL (1.0-4.8); LYMPH % 38 % (24-48); MEAN CORPUSCULAR HEMOGLOBIN 30 pg (25-35); MEAN CORPUSCULAR HGB CONC 33 g/dL (31-37); MEAN CORPUSCULAR VOLUME 92 fL (79-100); MONO # 0.5 x10^3/uL (0.0-1.1); MONO % 8 % (0-9); NEUT % 46 % (31-73); PLATELET COUNT 217 x10^3/uL (140-400); RED BLOOD COUNT 4.11 x10^6/uL (3.50-5.40); RED CELL DISTRIBUTION WIDTH 14.3 % (11.5-14.5); WHITE BLOOD COUNT 6.5 x10^3/uL (4.0-11.0)
[2016-08-31 07:03] LABS: ALBUMIN 3.3 g/dL (3.4-5.0); ALBUMIN/GLOBULIN RATIO 0.9 (1.0-1.7); CALCIUM 8.9 mg/dL (8.5-10.1); CREATININE 1.2 mg/dL (0.6-1.0); GFR 43.2; POTASSIUM 4.3 mmol/L (3.5-5.1); TOTAL BILIRUBIN 0.6 mg/dL (0.2-1.0); TOTAL PROTEIN 6.8 g/dL (6.4-8.2)
[2016-08-31 08:13] VITALS: BP 123/52
[2016-08-31] MEDS: METOPROLOL SUCC 24HR ER 25 MG TAB.ER.24H. PO SCH ×2 (08:14→19:28)
[2016-08-31] MEDS: busPIRone 10 MG TABLET. PO SCH ×2 (08:15→19:15)
[2016-08-31] MEDS: NICOTINE 14MG PATCH. TD SCH (08:15)
[2016-08-31] MEDS: CLOPIDOGREL BISULFATE 75 MG TABLET PO SCH (08:15)
[2016-08-31] MEDS: ESCITALOPRAM 10 MG TABLET. PO SCH (08:15)
[2016-08-31] MEDS: ASPIRIN ENTERIC COATED 81 MG TABLET.DR. PO SCH (08:15)
[2016-08-31] MEDS: ATORVASTATIN CALCIUM 20 MG TABLET PO SCH (19:14)
[2016-08-31] MEDS: risperiDONE 0.25 MG TABLET. PO SCH (19:15)
--- NOTE | 2016-08-31 19:41 | PN ---
DATE: 08/30/2016 PSYCHIATRIC PROGRESS NOTE This is late entry of 08/30/2016, covers elements not covered in my initial note. SUBJECTIVE: Overall, the patient did better in the morning, was compliant with the medications, more anxious after lunch due to increased noise on the unit with some demented patients yelling. REVIEW OF SYSTEMS: No CV, , pulmonary, eye, ENT system symptoms on review. Reliability poor. MENTAL STATUS EXAMINATION: Oriented to herself. Insight, judgment, recent and remote memory, attention, concentration, fund of knowledge poor, consistent with her diagnosis mentioned in my initial note. PLAN: Continue current psychotropics, BuSpar 10 b.i.d., Risperdal 0.375 mg at bedtime, Lexapro 10 mg a day, Ativan p.r.n. Adjust further as clinically indicated. MAN Ernesto GLASS MD DR: REZA/dank JOB#: [id number] / [id number]
--- NOTE | 2016-08-31 21:00 | PDOC ---
Exam Scott Demential Exam: Scott Note: Please also refer to the separate dictated note~for this date of service dictated separately.~Patient seen individually. Discussed the patient with Nursing staff reviewed the chart.~Reviewed interim history and current functioning. Reviewed vital signs,~Labs/ Radiology~and current medications noted below. Continue current treatment with the changes noted in the dictated addendum note Assessment: Vital Signs: Vital Signs Date Time Temp Pulse Resp B/P Pulse Ox O2 Delivery O2 Flow Rate FiO2 08/31/16 19:28 54 123/52 08/31/16 06:26 96.9 18 96 08/29/16 09:11 Room Air I&O Intake and Output 08/31/16 07:00 Intake Total 1080 ml Balance 1080 ml Intake Oral 1080 ml # Voids 1 # Bowel Movements 1 Labs: Laboratory Tests Test 08/31/16 06:34 White Blood Count 6.5x10^3/uL (4.0-11.0) Red Blood Count 4.11x10^6/uL (3.50-5.40) Hemoglobin 12.4g/dL (12.0-15.5) Hematocrit 37.8% (36.0-47.0) Mean Corpuscular Volume 92fL (79-100) Mean Corpuscular Hemoglobin 30pg (25-35) Mean Corpuscular Hemoglobin Concent 33g/dL (31-37) Red Cell Distribution Width 14.3% (11.5-14.5) Platelet Count 217x10^3/uL (140-400) Neutrophils (%) (Auto) 46% (31-73) Lymphocytes (%) (Auto) 38% (24-48) Monocytes (%) (Auto) 8% (0-9) Eosinophils (%) (Auto) 5% (0-3) H Basophils (%) (Auto) 4% (0-3) H Neutrophils # (Auto) 3.0x10^3uL (1.8-7.7) Lymphocytes # (Auto) 2.4x10^3/uL (1.0-4.8) Monocytes # (Auto) 0.5x10^3/uL (0.0-1.1) Eosinophils # (Auto) 0.3x10^3/uL (0.0-0.7) Basophils # (Auto) 0.2x10^3/uL (0.0-0.2) Sodium Level 143mmol/L (136-145) Potassium Level 4.3mmol/L (3.5-5.1) Chloride Level 108mmol/L (98-107) H Carbon Dioxide Level 32mmol/L (21-32) Anion Gap 3 (6-14) L Blood Urea Nitrogen 21mg/dL (7-20) H Creatinine 1.2mg/dL (0.6-1.0) H Estimated GFR (Cockcroft-Gault) 43.2 BUN/Creatinine Ratio 18 (6-20) Glucose Level 90mg/dL (70-99) Calcium Level 8.9mg/dL (8.5-10.1) Total Bilirubin 0.6mg/dL (0.2-1.0) Aspartate Amino Transferase (AST) 21U/L (15-37) Alanine Aminotransferase (ALT) 24U/L (14-59) Alkaline Phosphatase 72U/L (46-116) Total Protein 6.8g/dL (6.4-8.2) Albumin 3.3g/dL (3.4-5.0) L Albumin/Globulin Ratio 0.9 (1.0-1.7) L Current Medications: Meds: Current Medications Escitalopram Oxalate (Lexapro) 10 mg DAILY PO Last administered on 08/31/16 08 :15; Start 08/21/16 at 09:00 Lorazepam (Ativan) 1 mg PRN Q6HRS PRN PO ANXIETY / AGITATION Last administered on 08/21/16 16:42; Start 08/20/16 at 16:15; Stop 08/21/16 at 18:21; Status DC Quetiapine Fumarate (SEROquel) 25 mg TID PO Last administered on 08/24/16 13: 02; Start 08/20/16 at 21:00; Stop 08/24/16 at 18:12; Status DC Aspirin (Aspirin Enteric Coated) 81 mg DAILY PO Last administered on 08/31/16 08:15; Start 08/21/16 at 09:00 Clopidogrel Bisulfate (Plavix) 75 mg DAILY PO Last administered on 08/31/16 08 :15; Start 08/21/16 at 09:00 Levothyroxine Sodium (Synthroid) 100 mcg DAILY07 PO Last administered on 06:03; Start 08/21/16 at 07:00; Stop 08/21/16 at 13:17; Status DC Atorvastatin Calcium (Lipitor) 40 mg DAILY PO Last administered on 08/22/16 08: 09; Start 08/21/16 at 09:00; Stop 08/22/16 at 11:20; Status DC Non-Formulary Medication 1 each DAILY PO ; Start 08/21/16 at 09:00; Status UNV Multivitamins/ Calcium (Thera-M Plus) 1 tab DAILY PO Last administered on 08:09; Start 08/21/16 at 09:00; Stop 08/22/16 at 11:20; Status DC Vitamin E 400 unit DAILY PO Last administered on 08/22/16 08:09; Start 08/21/16 at 09:00; Stop 08/22/16 at 11:20; Status DC Calcium Carbonate/ Glycine (Tums) 500 mg DAILY PO Last administered on 08:08; Start 08/21/16 at 09:00; Stop 08/22/16 at 11:20; Status DC Magnesium Oxide (Magnesium Oxide) 400 mg DAILY PO Last administered on 08:09; Start 08/21/16 at 09:00; Stop 08/22/16 at 11:20; Status DC Folic Acid (Folic Acid) 1 mg DAILY PO Last administered on 08/22/16 08:09; Start 08/21/16 at 09:00; Stop 08/22/16 at 11:20; Status DC Acetaminophen (Tylenol) 650 mg PRN Q6HRS PRN PO PAIN / TEMP; Start 08/20/16 at 16:45 Al Hydroxide/Mg Hydroxide (Mylanta Plus Xs) 15 ml PRN AFTMEALHC PRN PO DYSPEPSIA; Start 08/20/16 at 16:45 Magnesium Hydroxide (Milk Of Magnesia) 2,400 mg PRN QHS PRN PO CONSTIPATION; Start 08/20/16 at 16:45 Nicotine (Nicoderm Cq 14mg) 1 patch DAILY TD Last administered on 08/28/16 08: 35; Start 08/21/16 at 09:00 Nicotine (Nicoderm Cq 14mg) 1 patch 1X ONCE TD Last administered on 08/20/16 21:08; Start 08/20/16 at 19:30; Stop 08/20/16 at 19:33; Status DC Metoprolol Succinate (Toprol Xl) 25 mg BID PO Last administered on 08/30/16 19 :15; Start 08/21/16 at 21:00 Cyanocobalamin (Vitamin B-12) 1,000 mcg [id number] IM Last administered on 13:45; Start 08/21/16 at 13:45 Acetaminophen (Tylenol) 650 mg BID PO Last administered on 08/22/16 08:10; Start 08/21/16 at 21:00; Stop 08/22/16 at 11:20; Status DC Lorazepam (Ativan) 0.25 mg PRN Q2HR PRN PO ANXIETY / AGITATION Last administered on 08/24/16 15:13; Start 08/22/16 at 16:15 Buspirone HCl (Buspar) 5 mg BID PO Last administered on 08/22/16 08:09; Start 08/21/16 at 21:00; Stop 08/22/16 at 18:22; Status DC Atorvastatin Calcium (Lipitor) 40 mg HS PO Last administered on 08/31/16 19:14 ; Start 08/23/16 at 21:00 Buspirone HCl (Buspar) 10 mg BID PO Last administered on 08/31/16 19:15; Start 08/22/16 at 21:00 Risperidone (Risperdal) 0.25 mg QHS PO Last administered on 08/25/16 19:31; Start 08/24/16 at 21:00; Stop 08/27/16 at 18:34; Status DC Risperidone (Risperdal) 0.375 mg HS PO Last administered on 08/31/16 19:15; Start 08/27/16 at 21:00 Active Scripts Active Reported Vitamin E (Vitamin E Acetate) 400 Unit Capsule 400 Unit PO DAILY Seroquel (Quetiapine Fumarate) 25 Mg Tablet 1 Tab PO TID Multi-Vitamin Daily (Multivitamin) 1 Each Tablet 1 Each PO DAILY Metoprolol Succinate ( Xl ) (Metoprolol Succinate) 25 Mg Tab.er.24h 1 Tab PO BID Magnebind 400 Rx Tablet (Calcium Carbonate/Mag Carb/Fa) 1 Each Tablet 1 Each PO DAILY Lorazepam 1 Mg Tablet 1 Mg PO PRN Q6HRS PRN Synthroid (Levothyroxine Sodium) 100 Mcg Tablet 2 Tab PO DAILY Galantamine Hbr 12 Mg Tablet 24 Mg PO DAILY Escitalopram Oxalate 10 Mg Tablet 1 Tab PO DAILY Clopidogrel (Clopidogrel Bisulfate) 75 Mg Tablet 75 Mg PO DAILY Atorvastatin Calcium 40 Mg Tablet 1 Tab PO DAILY Aspirin Ec (Aspirin) 81 Mg Tablet.dr 1 Tab PO DAILY Amlodipine Besylate 5 Mg Tablet 1 Tab PO DAILY PRINCESS GLASS MD Aug 31, 2016 21:00
[2016-09-01 07:12] VITALS: BP 134/60
[2016-09-01] MEDS: CLOPIDOGREL BISULFATE 75 MG TABLET PO SCH (08:17)
[2016-09-01] MEDS: ASPIRIN ENTERIC COATED 81 MG TABLET.DR. PO SCH (08:18)
[2016-09-01] MEDS: busPIRone 10 MG TABLET. PO SCH ×2 (08:18→19:47)
[2016-09-01] MEDS: METOPROLOL SUCC 24HR ER 25 MG TAB.ER.24H. PO SCH ×2 (08:19→19:46)
[2016-09-01] MEDS: ESCITALOPRAM 10 MG TABLET. PO SCH (08:19)
[2016-09-01] MEDS: NICOTINE 14MG PATCH. TD SCH (08:20)
[2016-09-01 16:14] VITALS: BP 172/70
[2016-09-01] MEDS: ATORVASTATIN CALCIUM 20 MG TABLET PO SCH (19:46)
[2016-09-01] MEDS: risperiDONE 0.25 MG TABLET. PO SCH (19:47)
--- NOTE | 2016-09-01 20:20 | PN ---
DATE: 08/31/2016 PSYCHIATRIC PROGRESS NOTE This is late entry of 08/31/2016, covers elements not covered in my initial note. SUBJECTIVE: The patient did well on the morning of 08/31/2016, alert, oriented to herself and calmer, participated in groups. In the afternoon, she was increasingly anxious after family members of other patients visited. She was then withdrawn. REVIEW OF SYSTEMS: No CV, , pulmonary, eye, ENT system symptoms on review. She was in the day room as I met with her. MENTAL STATUS EXAMINATION: Oriented to herself and at times to situation. Insight, judgment, recent memory is impaired. Language function intact. Attention span short. Mood and affect still dysphoric, less paranoid. LABORATORY DATA: Reviewed. IMPRESSION: Major neurocognitive disorder, Alzheimer, vascular with delusion, depression; anxiety disorder, unspecified. Rest unchanged. PLAN: Continue current psychotropics. Risperdal was increased. We will not increase further for now. PRINCESS GLASS MD DR: REZA/dank JOB#: [id number] / [id number]
--- NOTE | 2016-09-01 20:58 | PDOC ---
Exam Scott Demential Exam: Scott Note: Please also refer to the separate dictated note~for this date of service dictated separately.~Patient seen individually. Discussed the patient with Nursing staff reviewed the chart.~Reviewed interim history and current functioning. Reviewed vital signs,~Labs/ Radiology~and current medications noted below. Continue current treatment with the changes noted in the dictated addendum note Assessment: Vital Signs: Vital Signs Date Time Temp Pulse Resp B/P Pulse Ox O2 Delivery O2 Flow Rate FiO2 09/01/16 19:46 69 172/70 09/01/16 16:14 97.9 17 98 08/29/16 09:11 Room Air I&O Intake and Output 09/01/16 07:00 Intake Total 1080 ml Balance 1080 ml Intake Oral 1080 ml Current Medications: Meds: Current Medications Escitalopram Oxalate (Lexapro) 10 mg DAILY PO Last administered on 09/01/16 08 :19; Start 08/21/16 at 09:00 Lorazepam (Ativan) 1 mg PRN Q6HRS PRN PO ANXIETY / AGITATION Last administered on 08/21/16 16:42; Start 08/20/16 at 16:15; Stop 08/21/16 at 18:21; Status DC Quetiapine Fumarate (SEROquel) 25 mg TID PO Last administered on 08/24/16 13: 02; Start 08/20/16 at 21:00; Stop 08/24/16 at 18:12; Status DC Aspirin (Aspirin Enteric Coated) 81 mg DAILY PO Last administered on 09/01/16 08:18; Start 08/21/16 at 09:00 Clopidogrel Bisulfate (Plavix) 75 mg DAILY PO Last administered on 09/01/16 08 :17; Start 08/21/16 at 09:00 Levothyroxine Sodium (Synthroid) 100 mcg DAILY07 PO Last administered on 06:03; Start 08/21/16 at 07:00; Stop 08/21/16 at 13:17; Status DC Atorvastatin Calcium (Lipitor) 40 mg DAILY PO Last administered on 08/22/16 08: 09; Start 08/21/16 at 09:00; Stop 08/22/16 at 11:20; Status DC Non-Formulary Medication 1 each DAILY PO ; Start 08/21/16 at 09:00; Status UNV Multivitamins/ Calcium (Thera-M Plus) 1 tab DAILY PO Last administered on 08:09; Start 08/21/16 at 09:00; Stop 08/22/16 at 11:20; Status DC Vitamin E 400 unit DAILY PO Last administered on 08/22/16 08:09; Start 08/21/16 at 09:00; Stop 08/22/16 at 11:20; Status DC Calcium Carbonate/ Glycine (Tums) 500 mg DAILY PO Last administered on 08:08; Start 08/21/16 at 09:00; Stop 08/22/16 at 11:20; Status DC Magnesium Oxide (Magnesium Oxide) 400 mg DAILY PO Last administered on 08:09; Start 08/21/16 at 09:00; Stop 08/22/16 at 11:20; Status DC Folic Acid (Folic Acid) 1 mg DAILY PO Last administered on 08/22/16 08:09; Start 08/21/16 at 09:00; Stop 08/22/16 at 11:20; Status DC Acetaminophen (Tylenol) 650 mg PRN Q6HRS PRN PO PAIN / TEMP; Start 08/20/16 at 16:45 Al Hydroxide/Mg Hydroxide (Mylanta Plus Xs) 15 ml PRN AFTMEALHC PRN PO DYSPEPSIA; Start 08/20/16 at 16:45 Magnesium Hydroxide (Milk Of Magnesia) 2,400 mg PRN QHS PRN PO CONSTIPATION; Start 08/20/16 at 16:45 Nicotine (Nicoderm Cq 14mg) 1 patch DAILY TD Last administered on 08/28/16 08: 35; Start 08/21/16 at 09:00 Nicotine (Nicoderm Cq 14mg) 1 patch 1X ONCE TD Last administered on 08/20/16 21:08; Start 08/20/16 at 19:30; Stop 08/20/16 at 19:33; Status DC Metoprolol Succinate (Toprol Xl) 25 mg BID PO Last administered on 09/01/16 19 :46; Start 08/21/16 at 21:00 Cyanocobalamin (Vitamin B-12) 1,000 mcg [id number] IM Last administered on 13:45; Start 08/21/16 at 13:45 Acetaminophen (Tylenol) 650 mg BID PO Last administered on 08/22/16 08:10; Start 08/21/16 at 21:00; Stop 08/22/16 at 11:20; Status DC Lorazepam (Ativan) 0.25 mg PRN Q2HR PRN PO ANXIETY / AGITATION Last administered on 08/24/16 15:13; Start 08/22/16 at 16:15 Buspirone HCl (Buspar) 5 mg BID PO Last administered on 08/22/16 08:09; Start 08/21/16 at 21:00; Stop 08/22/16 at 18:22; Status DC Atorvastatin Calcium (Lipitor) 40 mg HS PO Last administered on 09/01/16 19:46 ; Start 08/23/16 at 21:00 Buspirone HCl (Buspar) 10 mg BID PO Last administered on 09/01/16 19:47; Start 08/22/16 at 21:00 Risperidone (Risperdal) 0.25 mg QHS PO Last administered on 08/25/16 19:31; Start 08/24/16 at 21:00; Stop 08/27/16 at 18:34; Status DC Risperidone (Risperdal) 0.375 mg HS PO Last administered on 09/01/16 19:47; Start 08/27/16 at 21:00 Active Scripts Active Reported Vitamin E (Vitamin E Acetate) 400 Unit Capsule 400 Unit PO DAILY Seroquel (Quetiapine Fumarate) 25 Mg Tablet 1 Tab PO TID Multi-Vitamin Daily (Multivitamin) 1 Each Tablet 1 Each PO DAILY Metoprolol Succinate ( Xl ) (Metoprolol Succinate) 25 Mg Tab.er.24h 1 Tab PO BID Magnebind 400 Rx Tablet (Calcium Carbonate/Mag Carb/Fa) 1 Each Tablet 1 Each PO DAILY Lorazepam 1 Mg Tablet 1 Mg PO PRN Q6HRS PRN Synthroid (Levothyroxine Sodium) 100 Mcg Tablet 2 Tab PO DAILY Galantamine Hbr 12 Mg Tablet 24 Mg PO DAILY Escitalopram Oxalate 10 Mg Tablet 1 Tab PO DAILY Clopidogrel (Clopidogrel Bisulfate) 75 Mg Tablet 75 Mg PO DAILY Atorvastatin Calcium 40 Mg Tablet 1 Tab PO DAILY Aspirin Ec (Aspirin) 81 Mg Tablet. 1 Tab PO DAILY Amlodipine Besylate 5 Mg Tablet 1 Tab PO DAILY PRINCESS GLASS MD Sep 01, 2016 20:58
[2016-09-02 05:46] VITALS: BP 145/65
[2016-09-02] MEDS: METOPROLOL SUCC 24HR ER 25 MG TAB.ER.24H. PO SCH ×2 (09:00→19:35)
[2016-09-02] MEDS: ASPIRIN ENTERIC COATED 81 MG TABLET.DR. PO SCH (09:24)
[2016-09-02] MEDS: CLOPIDOGREL BISULFATE 75 MG TABLET PO SCH (09:24)
[2016-09-02] MEDS: busPIRone 10 MG TABLET. PO SCH ×2 (09:24→19:35)
[2016-09-02] MEDS: ESCITALOPRAM 10 MG TABLET. PO SCH (09:24)
[2016-09-02] MEDS: NICOTINE 14MG PATCH. TD SCH (09:27)
[2016-09-02 15:38] VITALS: BP 147/74
[2016-09-02] MEDS: risperiDONE 0.25 MG TABLET. PO SCH (19:36)
[2016-09-02] MEDS: ATORVASTATIN CALCIUM 20 MG TABLET PO SCH (19:36)
--- NOTE | 2016-09-02 21:04 | PDOC ---
Exam Scott Demential Exam: Scott Note: Please also refer to the separate dictated note~for this date of service dictated separately.~Patient seen individually. Discussed the patient with Nursing staff reviewed the chart.~Reviewed interim history and current functioning. Reviewed vital signs,~Labs/ Radiology~and current medications noted below. Continue current treatment with the changes noted in the dictated addendum note Assessment: Vital Signs: Vital Signs Date Time Temp Pulse Resp B/P Pulse Ox O2 Delivery O2 Flow Rate FiO2 09/02/16 19:35 63 147/74 09/02/16 15:38 97.9 18 98 08/29/16 09:11 Room Air I&O Intake and Output 09/02/16 07:00 Intake Total 960 ml Balance 960 ml Intake Oral 960 ml Current Medications: Meds: Current Medications Escitalopram Oxalate (Lexapro) 10 mg DAILY PO Last administered on 09/02/16 09 :24; Start 08/21/16 at 09:00 Lorazepam (Ativan) 1 mg PRN Q6HRS PRN PO ANXIETY / AGITATION Last administered on 08/21/16 16:42; Start 08/20/16 at 16:15; Stop 08/21/16 at 18:21; Status DC Quetiapine Fumarate (SEROquel) 25 mg TID PO Last administered on 08/24/16 13: 02; Start 08/20/16 at 21:00; Stop 08/24/16 at 18:12; Status DC Aspirin (Aspirin Enteric Coated) 81 mg DAILY PO Last administered on 09/02/16 09:24; Start 08/21/16 at 09:00 Clopidogrel Bisulfate (Plavix) 75 mg DAILY PO Last administered on 09/02/16 09 :24; Start 08/21/16 at 09:00 Levothyroxine Sodium (Synthroid) 100 mcg DAILY07 PO Last administered on 06:03; Start 08/21/16 at 07:00; Stop 08/21/16 at 13:17; Status DC Atorvastatin Calcium (Lipitor) 40 mg DAILY PO Last administered on 08/22/16 08: 09; Start 08/21/16 at 09:00; Stop 08/22/16 at 11:20; Status DC Non-Formulary Medication 1 each DAILY PO ; Start 08/21/16 at 09:00; Status UNV Multivitamins/ Calcium (Thera-M Plus) 1 tab DAILY PO Last administered on 08:09; Start 08/21/16 at 09:00; Stop 08/22/16 at 11:20; Status DC Vitamin E 400 unit DAILY PO Last administered on 08/22/16 08:09; Start 08/21/16 at 09:00; Stop 08/22/16 at 11:20; Status DC Calcium Carbonate/ Glycine (Tums) 500 mg DAILY PO Last administered on 08:08; Start 08/21/16 at 09:00; Stop 08/22/16 at 11:20; Status DC Magnesium Oxide (Magnesium Oxide) 400 mg DAILY PO Last administered on 08:09; Start 08/21/16 at 09:00; Stop 08/22/16 at 11:20; Status DC Folic Acid (Folic Acid) 1 mg DAILY PO Last administered on 08/22/16 08:09; Start 08/21/16 at 09:00; Stop 08/22/16 at 11:20; Status DC Acetaminophen (Tylenol) 650 mg PRN Q6HRS PRN PO PAIN / TEMP; Start 08/20/16 at 16:45 Al Hydroxide/Mg Hydroxide (Mylanta Plus Xs) 15 ml PRN AFTMEALHC PRN PO DYSPEPSIA; Start 08/20/16 at 16:45 Magnesium Hydroxide (Milk Of Magnesia) 2,400 mg PRN QHS PRN PO CONSTIPATION; Start 08/20/16 at 16:45 Nicotine (Nicoderm Cq 14mg) 1 patch DAILY TD Last administered on 09/02/16 09: 27; Start 08/21/16 at 09:00 Nicotine (Nicoderm Cq 14mg) 1 patch 1X ONCE TD Last administered on 08/20/16 21:08; Start 08/20/16 at 19:30; Stop 08/20/16 at 19:33; Status DC Metoprolol Succinate (Toprol Xl) 25 mg BID PO Last administered on 09/02/16 19 :35; Start 08/21/16 at 21:00 Cyanocobalamin (Vitamin B-12) 1,000 mcg [id number] IM Last administered on 13:45; Start 08/21/16 at 13:45 Acetaminophen (Tylenol) 650 mg BID PO Last administered on 08/22/16 08:10; Start 08/21/16 at 21:00; Stop 08/22/16 at 11:20; Status DC Lorazepam (Ativan) 0.25 mg PRN Q2HR PRN PO ANXIETY / AGITATION Last administered on 08/24/16 15:13; Start 08/22/16 at 16:15 Buspirone HCl (Buspar) 5 mg BID PO Last administered on 08/22/16 08:09; Start 08/21/16 at 21:00; Stop 08/22/16 at 18:22; Status DC Atorvastatin Calcium (Lipitor) 40 mg HS PO Last administered on 09/02/16 19:36 ; Start 08/23/16 at 21:00 Buspirone HCl (Buspar) 10 mg BID PO Last administered on 09/02/16 19:35; Start 08/22/16 at 21:00 Risperidone (Risperdal) 0.25 mg QHS PO Last administered on 08/25/16 19:31; Start 08/24/16 at 21:00; Stop 08/27/16 at 18:34; Status DC Risperidone (Risperdal) 0.375 mg HS PO Last administered on 09/01/16 19:47; Start 08/27/16 at 21:00; Stop 09/02/16 at 10:29; Status DC Risperidone (Risperdal) 0.25 mg HS PO Last administered on 09/02/16 19:36; Start 09/02/16 at 21:00 Active Scripts Active Reported Vitamin E (Vitamin E Acetate) 400 Unit Capsule 400 Unit PO DAILY Seroquel (Quetiapine Fumarate) 25 Mg Tablet 1 Tab PO TID Multi-Vitamin Daily (Multivitamin) 1 Each Tablet 1 Each PO DAILY Metoprolol Succinate ( Xl ) (Metoprolol Succinate) 25 Mg Tab.er.24h 1 Tab PO BID Magnebind 400 Rx Tablet (Calcium Carbonate/Mag Carb/Fa) 1 Each Tablet 1 Each PO DAILY Lorazepam 1 Mg Tablet 1 Mg PO PRN Q6HRS PRN Synthroid (Levothyroxine Sodium) 100 Mcg Tablet 2 Tab PO DAILY Galantamine Hbr 12 Mg Tablet 24 Mg PO DAILY Escitalopram Oxalate 10 Mg Tablet 1 Tab PO DAILY Clopidogrel (Clopidogrel Bisulfate) 75 Mg Tablet 75 Mg PO DAILY Atorvastatin Calcium 40 Mg Tablet 1 Tab PO DAILY Aspirin Ec (Aspirin) 81 Mg Tablet. 1 Tab PO DAILY Amlodipine Besylate 5 Mg Tablet 1 Tab PO DAILY PRINCESS GLASS MD Sep 02, 2016 21:04
[2016-09-03] MEDS: ASPIRIN ENTERIC COATED 81 MG TABLET.DR. PO SCH (07:48)
[2016-09-03] MEDS: busPIRone 10 MG TABLET. PO SCH ×2 (07:48→19:26)
[2016-09-03] MEDS: METOPROLOL SUCC 24HR ER 25 MG TAB.ER.24H. PO SCH ×2 (07:48→21:00)
[2016-09-03] MEDS: ESCITALOPRAM 10 MG TABLET. PO SCH (07:48)
[2016-09-03] MEDS: CLOPIDOGREL BISULFATE 75 MG TABLET PO SCH (07:48)
[2016-09-03] MEDS: NICOTINE 14MG PATCH. TD SCH (07:49)
[2016-09-03 09:26] VITALS: BP 151/53
[2016-09-03 15:23] VITALS: BP 135/53
[2016-09-03] MEDS: ATORVASTATIN CALCIUM 20 MG TABLET PO SCH (19:26)
[2016-09-03] MEDS: risperiDONE 0.25 MG TABLET. PO SCH (19:26)
--- NOTE | 2016-09-03 20:55 | PDOC ---
Exam Scott Demential Exam: Scott Note: Please also refer to the separate dictated note~for this date of service dictated separately.~Patient seen individually. Discussed the patient with Nursing staff reviewed the chart.~Reviewed interim history and current functioning. Reviewed vital signs,~Labs/ Radiology~and current medications noted below. Continue current treatment with the changes noted in the dictated addendum note Assessment: Vital Signs: Vital Signs Date Time Temp Pulse Resp B/P Pulse Ox O2 Delivery O2 Flow Rate FiO2 09/03/16 15:23 97.4 56 20 135/53 97 09/03/16 09:26 Room Air I&O Intake and Output 09/03/16 07:00 Intake Total 1080 ml Balance 1080 ml Intake Oral 1080 ml Current Medications: Meds: Current Medications Escitalopram Oxalate (Lexapro) 10 mg DAILY PO Last administered on 09/03/16 07 :48; Start 08/21/16 at 09:00 Lorazepam (Ativan) 1 mg PRN Q6HRS PRN PO ANXIETY / AGITATION Last administered on 08/21/16 16:42; Start 08/20/16 at 16:15; Stop 08/21/16 at 18:21; Status DC Quetiapine Fumarate (SEROquel) 25 mg TID PO Last administered on 08/24/16 13: 02; Start 08/20/16 at 21:00; Stop 08/24/16 at 18:12; Status DC Aspirin (Aspirin Enteric Coated) 81 mg DAILY PO Last administered on 09/03/16 07:48; Start 08/21/16 at 09:00 Clopidogrel Bisulfate (Plavix) 75 mg DAILY PO Last administered on 09/03/16 07 :48; Start 08/21/16 at 09:00 Levothyroxine Sodium (Synthroid) 100 mcg DAILY07 PO Last administered on 06:03; Start 08/21/16 at 07:00; Stop 08/21/16 at 13:17; Status DC Atorvastatin Calcium (Lipitor) 40 mg DAILY PO Last administered on 08/22/16 08: 09; Start 08/21/16 at 09:00; Stop 08/22/16 at 11:20; Status DC Non-Formulary Medication 1 each DAILY PO ; Start 08/21/16 at 09:00; Status UNV Multivitamins/ Calcium (Thera-M Plus) 1 tab DAILY PO Last administered on 08:09; Start 08/21/16 at 09:00; Stop 08/22/16 at 11:20; Status DC Vitamin E 400 unit DAILY PO Last administered on 08/22/16 08:09; Start 08/21/16 at 09:00; Stop 08/22/16 at 11:20; Status DC Calcium Carbonate/ Glycine (Tums) 500 mg DAILY PO Last administered on 08:08; Start 08/21/16 at 09:00; Stop 08/22/16 at 11:20; Status DC Magnesium Oxide (Magnesium Oxide) 400 mg DAILY PO Last administered on 08:09; Start 08/21/16 at 09:00; Stop 08/22/16 at 11:20; Status DC Folic Acid (Folic Acid) 1 mg DAILY PO Last administered on 08/22/16 08:09; Start 08/21/16 at 09:00; Stop 08/22/16 at 11:20; Status DC Acetaminophen (Tylenol) 650 mg PRN Q6HRS PRN PO PAIN / TEMP; Start 08/20/16 at 16:45 Al Hydroxide/Mg Hydroxide (Mylanta Plus Xs) 15 ml PRN AFTMEALHC PRN PO DYSPEPSIA; Start 08/20/16 at 16:45 Magnesium Hydroxide (Milk Of Magnesia) 2,400 mg PRN QHS PRN PO CONSTIPATION; Start 08/20/16 at 16:45 Nicotine (Nicoderm Cq 14mg) 1 patch DAILY TD Last administered on 09/03/16 07: 49; Start 08/21/16 at 09:00 Nicotine (Nicoderm Cq 14mg) 1 patch 1X ONCE TD Last administered on 08/20/16 21:08; Start 08/20/16 at 19:30; Stop 08/20/16 at 19:33; Status DC Metoprolol Succinate (Toprol Xl) 25 mg BID PO Last administered on 09/03/16 07 :48; Start 08/21/16 at 21:00 Cyanocobalamin (Vitamin B-12) 1,000 mcg [id number] IM Last administered on 13:45; Start 08/21/16 at 13:45 Acetaminophen (Tylenol) 650 mg BID PO Last administered on 08/22/16 08:10; Start 08/21/16 at 21:00; Stop 08/22/16 at 11:20; Status DC Lorazepam (Ativan) 0.25 mg PRN Q2HR PRN PO ANXIETY / AGITATION Last administered on 08/24/16 15:13; Start 08/22/16 at 16:15 Buspirone HCl (Buspar) 5 mg BID PO Last administered on 08/22/16 08:09; Start 08/21/16 at 21:00; Stop 08/22/16 at 18:22; Status DC Atorvastatin Calcium (Lipitor) 40 mg HS PO Last administered on 09/03/16 19:26 ; Start 08/23/16 at 21:00 Buspirone HCl (Buspar) 10 mg BID PO Last administered on 09/03/16 19:26; Start 08/22/16 at 21:00 Risperidone (Risperdal) 0.25 mg QHS PO Last administered on 08/25/16 19:31; Start 08/24/16 at 21:00; Stop 08/27/16 at 18:34; Status DC Risperidone (Risperdal) 0.375 mg HS PO Last administered on 09/01/16 19:47; Start 08/27/16 at 21:00; Stop 09/02/16 at 10:29; Status DC Risperidone (Risperdal) 0.25 mg HS PO Last administered on 09/03/16 19:26; Start 09/02/16 at 21:00 Active Scripts Active Reported Vitamin E (Vitamin E Acetate) 400 Unit Capsule 400 Unit PO DAILY Seroquel (Quetiapine Fumarate) 25 Mg Tablet 1 Tab PO TID Multi-Vitamin Daily (Multivitamin) 1 Each Tablet 1 Each PO DAILY Metoprolol Succinate ( Xl ) (Metoprolol Succinate) 25 Mg Tab.er.24h 1 Tab PO BID Magnebind 400 Rx Tablet (Calcium Carbonate/Mag Carb/Fa) 1 Each Tablet 1 Each PO DAILY Lorazepam 1 Mg Tablet 1 Mg PO PRN Q6HRS PRN Synthroid (Levothyroxine Sodium) 100 Mcg Tablet 2 Tab PO DAILY Galantamine Hbr 12 Mg Tablet 24 Mg PO DAILY Escitalopram Oxalate 10 Mg Tablet 1 Tab PO DAILY Clopidogrel (Clopidogrel Bisulfate) 75 Mg Tablet 75 Mg PO DAILY Atorvastatin Calcium 40 Mg Tablet 1 Tab PO DAILY Aspirin Ec (Aspirin) 81 Mg Tablet. 1 Tab PO DAILY Amlodipine Besylate 5 Mg Tablet 1 Tab PO DAILY PRINCESS GLASS MD Sep 03, 2016 20:55
--- NOTE | 2016-09-03 22:19 | PN ---
DATE: 09/01/2016 PSYCHIATRIC PROGRESS NOTE This is late entry of 09/01/2016, covers elements not covered in my initial note. SUBJECTIVE: The patient remains confused, forgetful, compliant with her medications, seems to be close to another demented patient on the unit who is also quite oriented. REVIEW OF SYSTEMS: No CV, , pulmonary, eye system symptoms on review. MENTAL STATUS EXAMINATION: Oriented to herself and situation. Speech is coherent, has some latency, less paranoid. Insight, judgment, recent and remote memory, attention, concentration, fund of knowledge poor, consistent with her diagnosis mentioned in my initial note. PLAN: Continue current psychotropics. Adjust further as clinically indicated. MAN Ernesto GLASS MD DR: REZA/dank JOB#: [id number] / [id number]
--- NOTE | 2016-09-03 22:24 | PN ---
DATE: 09/02/2016 PSYCHIATRIC PROGRESS NOTE This is late entry of 09/02/2016, covers elements not covered in my initial note. SUBJECTIVE: The patient was staffed at treatment team meeting with entire team on morning of 09/02/2016 with the patient's daughter, Mar attending. Reviewed the patient's history, diagnosis, progress, prognosis, discharge and aftercare plans at length. The patient remains disorganized and family expressed concern that her level of disorganization and verbal responses to them during visits little worse than before. Despite that, she is less agitated, more cooperative, certainly less delusional as compared to how she was when she was initially admitted. No clear hallucinations noted. REVIEW OF SYSTEMS: No CV, , pulmonary, eye, ENT system symptoms on review. Reliability poor. MENTAL STATUS EXAMINATION: Oriented to herself. Insight, judgment, recent and remote memory, attention, concentration, fund of knowledge poor, consistent with her diagnosis mentioned in my initial note. PLAN: Reduce Risperdal from 0.375 mg at bedtime to 0.25 mg at bedtime, maintain Lexapro 10 mg a day, BuSpar 10 b.i.d. and Ativan p.r.n. Adjust further as clinically indicated. PRINCESS GLASS MD DR: REZA/dank JOB#: [id number] / [id number]
[2016-09-04 06:25] VITALS: BP 171/72
[2016-09-04] MEDS: METOPROLOL SUCC 24HR ER 25 MG TAB.ER.24H. PO SCH (07:49)
[2016-09-04] MEDS: busPIRone 10 MG TABLET. PO SCH ×2 (07:49→19:53)
[2016-09-04] MEDS: ASPIRIN ENTERIC COATED 81 MG TABLET.DR. PO SCH (07:49)
[2016-09-04] MEDS: CLOPIDOGREL BISULFATE 75 MG TABLET PO SCH (07:50)
[2016-09-04] MEDS: ESCITALOPRAM 10 MG TABLET. PO SCH (07:50)
[2016-09-04] MEDS: NICOTINE 14MG PATCH. TD SCH (07:50)
[2016-09-04 16:08] VITALS: BP 145/66
[2016-09-04] MEDS: risperiDONE 0.25 MG TABLET. PO SCH (19:53)
[2016-09-04] MEDS: ATORVASTATIN CALCIUM 20 MG TABLET PO SCH (19:53)
--- NOTE | 2016-09-04 21:05 | PDOC ---
Exam Scott Demential Exam: Scott Note: Please also refer to the separate dictated note~for this date of service dictated separately.~Patient seen individually. Discussed the patient with Nursing staff reviewed the chart.~Reviewed interim history and current functioning. Reviewed vital signs,~Labs/ Radiology~and current medications noted below. Continue current treatment with the changes noted in the dictated addendum note Assessment: Vital Signs: Vital Signs Date Time Temp Pulse Resp B/P Pulse Ox O2 Delivery O2 Flow Rate FiO2 09/04/16 16:08 97.8 65 18 145/66 99 09/04/16 06:25 Room Air I&O Intake and Output 09/04/16 07:00 Intake Total 1320 ml Balance 1320 ml Intake Oral 1320 ml Current Medications: Meds: Current Medications Escitalopram Oxalate (Lexapro) 10 mg DAILY PO Last administered on 09/04/16 07 :50; Start 08/21/16 at 09:00 Lorazepam (Ativan) 1 mg PRN Q6HRS PRN PO ANXIETY / AGITATION Last administered on 08/21/16 16:42; Start 08/20/16 at 16:15; Stop 08/21/16 at 18:21; Status DC Quetiapine Fumarate (SEROquel) 25 mg TID PO Last administered on 08/24/16 13: 02; Start 08/20/16 at 21:00; Stop 08/24/16 at 18:12; Status DC Aspirin (Aspirin Enteric Coated) 81 mg DAILY PO Last administered on 09/04/16 07:49; Start 08/21/16 at 09:00 Clopidogrel Bisulfate (Plavix) 75 mg DAILY PO Last administered on 09/04/16 07 :50; Start 08/21/16 at 09:00 Levothyroxine Sodium (Synthroid) 100 mcg DAILY07 PO Last administered on 06:03; Start 08/21/16 at 07:00; Stop 08/21/16 at 13:17; Status DC Atorvastatin Calcium (Lipitor) 40 mg DAILY PO Last administered on 08/22/16 08: 09; Start 08/21/16 at 09:00; Stop 08/22/16 at 11:20; Status DC Non-Formulary Medication 1 each DAILY PO ; Start 08/21/16 at 09:00; Status UNV Multivitamins/ Calcium (Thera-M Plus) 1 tab DAILY PO Last administered on 08:09; Start 08/21/16 at 09:00; Stop 08/22/16 at 11:20; Status DC Vitamin E 400 unit DAILY PO Last administered on 08/22/16 08:09; Start 08/21/16 at 09:00; Stop 08/22/16 at 11:20; Status DC Calcium Carbonate/ Glycine (Tums) 500 mg DAILY PO Last administered on 08:08; Start 08/21/16 at 09:00; Stop 08/22/16 at 11:20; Status DC Magnesium Oxide (Magnesium Oxide) 400 mg DAILY PO Last administered on 08:09; Start 08/21/16 at 09:00; Stop 08/22/16 at 11:20; Status DC Folic Acid (Folic Acid) 1 mg DAILY PO Last administered on 08/22/16 08:09; Start 08/21/16 at 09:00; Stop 08/22/16 at 11:20; Status DC Acetaminophen (Tylenol) 650 mg PRN Q6HRS PRN PO PAIN / TEMP; Start 08/20/16 at 16:45 Al Hydroxide/Mg Hydroxide (Mylanta Plus Xs) 15 ml PRN AFTMEALHC PRN PO DYSPEPSIA; Start 08/20/16 at 16:45 Magnesium Hydroxide (Milk Of Magnesia) 2,400 mg PRN QHS PRN PO CONSTIPATION; Start 08/20/16 at 16:45 Nicotine (Nicoderm Cq 14mg) 1 patch DAILY TD Last administered on 09/04/16 07: 50; Start 08/21/16 at 09:00 Nicotine (Nicoderm Cq 14mg) 1 patch 1X ONCE TD Last administered on 08/20/16 21:08; Start 08/20/16 at 19:30; Stop 08/20/16 at 19:33; Status DC Metoprolol Succinate (Toprol Xl) 25 mg BID PO Last administered on 09/03/16 07 :48; Start 08/21/16 at 21:00; Stop 09/04/16 at 09:58; Status DC Cyanocobalamin (Vitamin B-12) 1,000 mcg [id number] IM Last administered on 13:45; Start 08/21/16 at 13:45 Acetaminophen (Tylenol) 650 mg BID PO Last administered on 08/22/16 08:10; Start 08/21/16 at 21:00; Stop 08/22/16 at 11:20; Status DC Lorazepam (Ativan) 0.25 mg PRN Q2HR PRN PO ANXIETY / AGITATION Last administered on 08/24/16 15:13; Start 08/22/16 at 16:15 Buspirone HCl (Buspar) 5 mg BID PO Last administered on 08/22/16 08:09; Start 08/21/16 at 21:00; Stop 08/22/16 at 18:22; Status DC Atorvastatin Calcium (Lipitor) 40 mg HS PO Last administered on 09/04/16 19:53 ; Start 08/23/16 at 21:00 Buspirone HCl (Buspar) 10 mg BID PO Last administered on 09/04/16 19:53; Start 08/22/16 at 21:00 Risperidone (Risperdal) 0.25 mg QHS PO Last administered on 08/25/16 19:31; Start 08/24/16 at 21:00; Stop 08/27/16 at 18:34; Status DC Risperidone (Risperdal) 0.375 mg HS PO Last administered on 09/01/16 19:47; Start 08/27/16 at 21:00; Stop 09/02/16 at 10:29; Status DC Risperidone (Risperdal) 0.25 mg HS PO Last administered on 09/04/16 19:53; Start 09/02/16 at 21:00 Metoprolol Succinate (Toprol Xl) 25 mg DAILY10 PO ; Start 09/05/16 at 10:15 Active Scripts Active Reported Vitamin E (Vitamin E Acetate) 400 Unit Capsule 400 Unit PO DAILY Seroquel (Quetiapine Fumarate) 25 Mg Tablet 1 Tab PO TID Multi-Vitamin Daily (Multivitamin) 1 Each Tablet 1 Each PO DAILY Metoprolol Succinate ( Xl ) (Metoprolol Succinate) 25 Mg Tab.er.24h 1 Tab PO BID Magnebind 400 Rx Tablet (Calcium Carbonate/Mag Carb/Fa) 1 Each Tablet 1 Each PO DAILY Lorazepam 1 Mg Tablet 1 Mg PO PRN Q6HRS PRN Synthroid (Levothyroxine Sodium) 100 Mcg Tablet 2 Tab PO DAILY Galantamine Hbr 12 Mg Tablet 24 Mg PO DAILY Escitalopram Oxalate 10 Mg Tablet 1 Tab PO DAILY Clopidogrel (Clopidogrel Bisulfate) 75 Mg Tablet 75 Mg PO DAILY Atorvastatin Calcium 40 Mg Tablet 1 Tab PO DAILY Aspirin Ec (Aspirin) 81 Mg Tablet.dr 1 Tab PO DAILY Amlodipine Besylate 5 Mg Tablet 1 Tab PO DAILY PRINCESS GLASS MD Sep 04, 2016 21:05
[2016-09-05 06:57] VITALS: BP 125/52
[2016-09-05] MEDS: NICOTINE 14MG PATCH. TD SCH (07:43)
[2016-09-05] MEDS: busPIRone 10 MG TABLET. PO SCH ×2 (07:43→20:11)
[2016-09-05] MEDS: CLOPIDOGREL BISULFATE 75 MG TABLET PO SCH (07:43)
[2016-09-05] MEDS: ASPIRIN ENTERIC COATED 81 MG TABLET.DR. PO SCH (07:43)
[2016-09-05] MEDS: ESCITALOPRAM 10 MG TABLET. PO SCH (07:43)
[2016-09-05] MEDS: METOPROLOL SUCC 24HR ER 25 MG TAB.ER.24H. PO SCH (08:53)
--- NOTE | 2016-09-05 09:03 | PN ---
DATE: 09/03/2016 PSYCHIATRIC PROGRESS NOTE This is a late entry of 09/03/2016 covers elements not covered in my initial note. SUBJECTIVE: Overall, the patient remains confused per nursing report, but pleasant, holds hands with another patient on the unit redirectable. REVIEW OF SYSTEMS: No CV, , pulmonary, eye, ENT system symptoms on review. MENTAL STATUS EXAM: Oriented to herself. Insight somewhat limited. Judgment marginal at times. Language function intact. Mood and affect has improved. No psychotic symptoms, suicidal or homicidal ideation. LABORATORY DATA: Reviewed. IMPRESSION: Unchanged from initial note. PLAN: Continue psychotropics mentioned in my initial note. MAN Ernesto GLASS MD DR: REZA/dank JOB#: [id number] / [id number]
--- NOTE | 2016-09-05 09:06 | PN ---
DATE: 09/04/2016 PSYCHIATRIC PROGRESS NOTE This is a late entry of 09/04/2016 covers elements not covered in my initial note. SUBJECTIVE: Overall, the patient is doing well per nursing report. Holding hands with another patient on the unit. Family visited the previous evening the patient and remarked that they were pleased. The patient is more social interactive and she is sitting out in the lounge area much more rather than isolating to her room. REVIEW OF SYSTEMS: No CV, , pulmonary, eye, ENT system symptoms on review. Reliability poor. MENTAL STATUS EXAM: Oriented to herself. Insight, judgment, recent memory is impaired. Language function intact. Attention span short. Mood and affect is improved. LABORATORY DATA: Reviewed. IMPRESSION: Unchanged from initial note. PLAN: Continue current psychotropics, adjust further as clinically indicated. MAN Ernesto GLASS MD DR: REZA/dank JOB#: [id number] / [id number]
[2016-09-05 17:01] VITALS: BP 163/76
[2016-09-05] MEDS: risperiDONE 0.25 MG TABLET. PO SCH (20:11)
[2016-09-05] MEDS: ATORVASTATIN CALCIUM 20 MG TABLET PO SCH (20:12)
--- NOTE | 2016-09-05 20:55 | PDOC ---
Exam Scott Demential Exam: Scott Note: Please also refer to the separate dictated note~for this date of service dictated separately.~Patient seen individually. Discussed the patient with Nursing staff reviewed the chart.~Reviewed interim history and current functioning. Reviewed vital signs,~Labs/ Radiology~and current medications noted below. Continue current treatment with the changes noted in the dictated addendum note Assessment: Vital Signs: Vital Signs Date Time Temp Pulse Resp B/P Pulse Ox O2 Delivery O2 Flow Rate FiO2 09/05/16 17:01 97.4 56 19 163/76 97 09/04/16 06:25 Room Air I&O Intake and Output 09/05/16 07:00 Intake Total 1320 ml Balance 1320 ml Intake Oral 1320 ml Current Medications: Meds: Current Medications Escitalopram Oxalate (Lexapro) 10 mg DAILY PO Last administered on 09/05/16 07 :43; Start 08/21/16 at 09:00 Lorazepam (Ativan) 1 mg PRN Q6HRS PRN PO ANXIETY / AGITATION Last administered on 08/21/16 16:42; Start 08/20/16 at 16:15; Stop 08/21/16 at 18:21; Status DC Quetiapine Fumarate (SEROquel) 25 mg TID PO Last administered on 08/24/16 13: 02; Start 08/20/16 at 21:00; Stop 08/24/16 at 18:12; Status DC Aspirin (Aspirin Enteric Coated) 81 mg DAILY PO Last administered on 09/05/16 07:43; Start 08/21/16 at 09:00 Clopidogrel Bisulfate (Plavix) 75 mg DAILY PO Last administered on 09/05/16 07 :43; Start 08/21/16 at 09:00 Levothyroxine Sodium (Synthroid) 100 mcg DAILY07 PO Last administered on 06:03; Start 08/21/16 at 07:00; Stop 08/21/16 at 13:17; Status DC Atorvastatin Calcium (Lipitor) 40 mg DAILY PO Last administered on 08/22/16 08: 09; Start 08/21/16 at 09:00; Stop 08/22/16 at 11:20; Status DC Non-Formulary Medication 1 each DAILY PO ; Start 08/21/16 at 09:00; Status UNV Multivitamins/ Calcium (Thera-M Plus) 1 tab DAILY PO Last administered on 08:09; Start 08/21/16 at 09:00; Stop 08/22/16 at 11:20; Status DC Vitamin E 400 unit DAILY PO Last administered on 08/22/16 08:09; Start 08/21/16 at 09:00; Stop 08/22/16 at 11:20; Status DC Calcium Carbonate/ Glycine (Tums) 500 mg DAILY PO Last administered on 08:08; Start 08/21/16 at 09:00; Stop 08/22/16 at 11:20; Status DC Magnesium Oxide (Magnesium Oxide) 400 mg DAILY PO Last administered on 08:09; Start 08/21/16 at 09:00; Stop 08/22/16 at 11:20; Status DC Folic Acid (Folic Acid) 1 mg DAILY PO Last administered on 08/22/16 08:09; Start 08/21/16 at 09:00; Stop 08/22/16 at 11:20; Status DC Acetaminophen (Tylenol) 650 mg PRN Q6HRS PRN PO PAIN / TEMP; Start 08/20/16 at 16:45 Al Hydroxide/Mg Hydroxide (Mylanta Plus Xs) 15 ml PRN AFTMEALHC PRN PO DYSPEPSIA; Start 08/20/16 at 16:45 Magnesium Hydroxide (Milk Of Magnesia) 2,400 mg PRN QHS PRN PO CONSTIPATION; Start 08/20/16 at 16:45 Nicotine (Nicoderm Cq 14mg) 1 patch DAILY TD Last administered on 09/05/16 07: 43; Start 08/21/16 at 09:00 Nicotine (Nicoderm Cq 14mg) 1 patch 1X ONCE TD Last administered on 08/20/16 21:08; Start 08/20/16 at 19:30; Stop 08/20/16 at 19:33; Status DC Metoprolol Succinate (Toprol Xl) 25 mg BID PO Last administered on 09/03/16 07 :48; Start 08/21/16 at 21:00; Stop 09/04/16 at 09:58; Status DC Cyanocobalamin (Vitamin B-12) 1,000 mcg [id number] IM Last administered on 13:45; Start 08/21/16 at 13:45 Acetaminophen (Tylenol) 650 mg BID PO Last administered on 08/22/16 08:10; Start 08/21/16 at 21:00; Stop 08/22/16 at 11:20; Status DC Lorazepam (Ativan) 0.25 mg PRN Q2HR PRN PO ANXIETY / AGITATION Last administered on 08/24/16 15:13; Start 08/22/16 at 16:15 Buspirone HCl (Buspar) 5 mg BID PO Last administered on 08/22/16 08:09; Start 08/21/16 at 21:00; Stop 08/22/16 at 18:22; Status DC Atorvastatin Calcium (Lipitor) 40 mg HS PO Last administered on 09/05/16 20:12 ; Start 08/23/16 at 21:00 Buspirone HCl (Buspar) 10 mg BID PO Last administered on 09/05/16 20:11; Start 08/22/16 at 21:00 Risperidone (Risperdal) 0.25 mg QHS PO Last administered on 08/25/16 19:31; Start 08/24/16 at 21:00; Stop 08/27/16 at 18:34; Status DC Risperidone (Risperdal) 0.375 mg HS PO Last administered on 09/01/16 19:47; Start 08/27/16 at 21:00; Stop 09/02/16 at 10:29; Status DC Risperidone (Risperdal) 0.25 mg HS PO Last administered on 09/05/16 20:11; Start 09/02/16 at 21:00 Metoprolol Succinate (Toprol Xl) 25 mg DAILY10 PO Last administered on 08:53; Start 09/05/16 at 10:15 Active Scripts Active Reported Vitamin E (Vitamin E Acetate) 400 Unit Capsule 400 Unit PO DAILY Seroquel (Quetiapine Fumarate) 25 Mg Tablet 1 Tab PO TID Multi-Vitamin Daily (Multivitamin) 1 Each Tablet 1 Each PO DAILY Metoprolol Succinate ( Xl ) (Metoprolol Succinate) 25 Mg Tab.er.24h 1 Tab PO BID Magnebind 400 Rx Tablet (Calcium Carbonate/Mag Carb/Fa) 1 Each Tablet 1 Each PO DAILY Lorazepam 1 Mg Tablet 1 Mg PO PRN Q6HRS PRN Synthroid (Levothyroxine Sodium) 100 Mcg Tablet 2 Tab PO DAILY Galantamine Hbr 12 Mg Tablet 24 Mg PO DAILY Escitalopram Oxalate 10 Mg Tablet 1 Tab PO DAILY Clopidogrel (Clopidogrel Bisulfate) 75 Mg Tablet 75 Mg PO DAILY Atorvastatin Calcium 40 Mg Tablet 1 Tab PO DAILY Aspirin Ec (Aspirin) 81 Mg Tablet. 1 Tab PO DAILY Amlodipine Besylate 5 Mg Tablet 1 Tab PO DAILY PRINCESS GLASS MD Sep 05, 2016 20:55
[2016-09-06 06:51] VITALS: BP 123/63
[2016-09-06] MEDS: ESCITALOPRAM 10 MG TABLET. PO SCH (08:19)
[2016-09-06] MEDS: ASPIRIN ENTERIC COATED 81 MG TABLET.DR. PO SCH (08:19)
[2016-09-06] MEDS: CLOPIDOGREL BISULFATE 75 MG TABLET PO SCH (08:20)
[2016-09-06] MEDS: NICOTINE 14MG PATCH. TD SCH (08:20)
[2016-09-06] MEDS: busPIRone 10 MG TABLET. PO SCH ×2 (08:20→19:20)
[2016-09-06] MEDS: METOPROLOL SUCC 24HR ER 25 MG TAB.ER.24H. PO SCH (08:21)
--- NOTE | 2016-09-06 15:24 | PN ---
DATE: 09/05/2016 PSYCHIATRIC PROGRESS NOTE This is late entry of 09/05/2016, covers elements not covered in my initial note. SUBJECTIVE: Per nursing report, the patient remains confused, but spends much time in the day room. She is noted to be kissing another male patient and holding hands, compliant with medications, asking nursing staff how to elope from the hospital. REVIEW OF SYSTEMS: No CV, , pulmonary, eye, ENT system symptoms on review. MENTAL STATUS EXAMINATION: Oriented to herself. Insight, judgment, recent and remote memory, attention, concentration, fund of knowledge poor, consistent with her diagnosis mentioned in my initial note. IMPRESSION: Unchanged from my initial note. PLAN: Continue current psychotropics, transition to a lower level of care this week. MAN Ernesto GLASS MD DR: REZA/dank JOB#: [id number] / [id number]
[2016-09-06 16:08] VITALS: BP 148/70
[2016-09-06] MEDS: risperiDONE 0.25 MG TABLET. PO SCH (19:20)
[2016-09-06] MEDS: ATORVASTATIN CALCIUM 20 MG TABLET PO SCH (19:21)
--- NOTE | 2016-09-06 23:41 | PDOC ---
Exam Scott Demential Exam: Scott Note: Please also refer to the separate dictated note~for this date of service dictated separately.~Patient seen individually. Discussed the patient with Nursing staff reviewed the chart.~Reviewed interim history and current functioning. Reviewed vital signs,~Labs/ Radiology~and current medications noted below. Continue current treatment with the changes noted in the dictated addendum note Assessment: Vital Signs: Vital Signs Date Time Temp Pulse Resp B/P Pulse Ox O2 Delivery O2 Flow Rate FiO2 09/06/16 16:08 98.2 85 16 148/70 92 09/04/16 06:25 Room Air I&O Intake and Output 09/06/16 07:00 Intake Total 960 ml Balance 960 ml Intake Oral 960 ml Current Medications: Meds: Current Medications Escitalopram Oxalate (Lexapro) 10 mg DAILY PO Last administered on 09/06/16 08 :19; Start 08/21/16 at 09:00 Lorazepam (Ativan) 1 mg PRN Q6HRS PRN PO ANXIETY / AGITATION Last administered on 08/21/16 16:42; Start 08/20/16 at 16:15; Stop 08/21/16 at 18:21; Status DC Quetiapine Fumarate (SEROquel) 25 mg TID PO Last administered on 08/24/16 13: 02; Start 08/20/16 at 21:00; Stop 08/24/16 at 18:12; Status DC Aspirin (Aspirin Enteric Coated) 81 mg DAILY PO Last administered on 09/06/16 08:19; Start 08/21/16 at 09:00 Clopidogrel Bisulfate (Plavix) 75 mg DAILY PO Last administered on 09/06/16 08 :20; Start 08/21/16 at 09:00 Levothyroxine Sodium (Synthroid) 100 mcg DAILY07 PO Last administered on 06:03; Start 08/21/16 at 07:00; Stop 08/21/16 at 13:17; Status DC Atorvastatin Calcium (Lipitor) 40 mg DAILY PO Last administered on 08/22/16 08: 09; Start 08/21/16 at 09:00; Stop 08/22/16 at 11:20; Status DC Non-Formulary Medication 1 each DAILY PO ; Start 08/21/16 at 09:00; Status UNV Multivitamins/ Calcium (Thera-M Plus) 1 tab DAILY PO Last administered on 08:09; Start 08/21/16 at 09:00; Stop 08/22/16 at 11:20; Status DC Vitamin E 400 unit DAILY PO Last administered on 08/22/16 08:09; Start 08/21/16 at 09:00; Stop 08/22/16 at 11:20; Status DC Calcium Carbonate/ Glycine (Tums) 500 mg DAILY PO Last administered on 08:08; Start 08/21/16 at 09:00; Stop 08/22/16 at 11:20; Status DC Magnesium Oxide (Magnesium Oxide) 400 mg DAILY PO Last administered on 08:09; Start 08/21/16 at 09:00; Stop 08/22/16 at 11:20; Status DC Folic Acid (Folic Acid) 1 mg DAILY PO Last administered on 08/22/16 08:09; Start 08/21/16 at 09:00; Stop 08/22/16 at 11:20; Status DC Acetaminophen (Tylenol) 650 mg PRN Q6HRS PRN PO PAIN / TEMP; Start 08/20/16 at 16:45 Al Hydroxide/Mg Hydroxide (Mylanta Plus Xs) 15 ml PRN AFTMEALHC PRN PO DYSPEPSIA; Start 08/20/16 at 16:45 Magnesium Hydroxide (Milk Of Magnesia) 2,400 mg PRN QHS PRN PO CONSTIPATION; Start 08/20/16 at 16:45 Nicotine (Nicoderm Cq 14mg) 1 patch DAILY TD Last administered on 09/06/16 08: 20; Start 08/21/16 at 09:00 Nicotine (Nicoderm Cq 14mg) 1 patch 1X ONCE TD Last administered on 08/20/16 21:08; Start 08/20/16 at 19:30; Stop 08/20/16 at 19:33; Status DC Metoprolol Succinate (Toprol Xl) 25 mg BID PO Last administered on 09/03/16 07 :48; Start 08/21/16 at 21:00; Stop 09/04/16 at 09:58; Status DC Cyanocobalamin (Vitamin B-12) 1,000 mcg [id number] IM Last administered on 13:45; Start 08/21/16 at 13:45 Acetaminophen (Tylenol) 650 mg BID PO Last administered on 08/22/16 08:10; Start 08/21/16 at 21:00; Stop 08/22/16 at 11:20; Status DC Lorazepam (Ativan) 0.25 mg PRN Q2HR PRN PO ANXIETY / AGITATION Last administered on 08/24/16 15:13; Start 08/22/16 at 16:15 Buspirone HCl (Buspar) 5 mg BID PO Last administered on 08/22/16 08:09; Start 08/21/16 at 21:00; Stop 08/22/16 at 18:22; Status DC Atorvastatin Calcium (Lipitor) 40 mg HS PO Last administered on 09/06/16 19:21 ; Start 08/23/16 at 21:00 Buspirone HCl (Buspar) 10 mg BID PO Last administered on 09/06/16 19:20; Start 08/22/16 at 21:00 Risperidone (Risperdal) 0.25 mg QHS PO Last administered on 08/25/16 19:31; Start 08/24/16 at 21:00; Stop 08/27/16 at 18:34; Status DC Risperidone (Risperdal) 0.375 mg HS PO Last administered on 09/01/16 19:47; Start 08/27/16 at 21:00; Stop 09/02/16 at 10:29; Status DC Risperidone (Risperdal) 0.25 mg HS PO Last administered on 09/06/16 19:20; Start 09/02/16 at 21:00 Metoprolol Succinate (Toprol Xl) 25 mg DAILY10 PO Last administered on 08:21; Start 09/05/16 at 10:15 Active Scripts Active Reported Vitamin E (Vitamin E Acetate) 400 Unit Capsule 400 Unit PO DAILY Seroquel (Quetiapine Fumarate) 25 Mg Tablet 1 Tab PO TID Multi-Vitamin Daily (Multivitamin) 1 Each Tablet 1 Each PO DAILY Metoprolol Succinate ( Xl ) (Metoprolol Succinate) 25 Mg Tab.er.24h 1 Tab PO BID Magnebind 400 Rx Tablet (Calcium Carbonate/Mag Carb/Fa) 1 Each Tablet 1 Each PO DAILY Lorazepam 1 Mg Tablet 1 Mg PO PRN Q6HRS PRN Synthroid (Levothyroxine Sodium) 100 Mcg Tablet 2 Tab PO DAILY Galantamine Hbr 12 Mg Tablet 24 Mg PO DAILY Escitalopram Oxalate 10 Mg Tablet 1 Tab PO DAILY Clopidogrel (Clopidogrel Bisulfate) 75 Mg Tablet 75 Mg PO DAILY Atorvastatin Calcium 40 Mg Tablet 1 Tab PO DAILY Aspirin Ec (Aspirin) 81 Mg Tablet. 1 Tab PO DAILY Amlodipine Besylate 5 Mg Tablet 1 Tab PO DAILY PRINCESS GLASS MD Sep 06, 2016 23:41
[2016-09-07 06:11] VITALS: BP 124/70
[2016-09-07] MEDS: busPIRone 10 MG TABLET. PO SCH ×2 (08:26→19:36)
[2016-09-07] MEDS: ESCITALOPRAM 10 MG TABLET. PO SCH (08:26)
[2016-09-07] MEDS: ASPIRIN ENTERIC COATED 81 MG TABLET.DR. PO SCH (08:26)
[2016-09-07] MEDS: CLOPIDOGREL BISULFATE 75 MG TABLET PO SCH (08:26)
[2016-09-07] MEDS: NICOTINE 14MG PATCH. TD SCH (08:26)
[2016-09-07] MEDS: METOPROLOL SUCC 24HR ER 25 MG TAB.ER.24H. PO SCH (08:27)
[2016-09-07 10:23] LABS: BASO # 0.1 x10^3/uL (0.0-0.2); BASO % 2 % (0-3); EOS # 0.2 x10^3/uL (0.0-0.7); EOS % 3 % (0-3); HEMOGLOBIN 13.2 g/dL (12.0-15.5); LYMPH # 2.2 x10^3/uL (1.0-4.8); LYMPH % 32 % (24-48); MEAN CORPUSCULAR HEMOGLOBIN 30 pg (25-35); MEAN CORPUSCULAR HGB CONC 32 g/dL (31-37); MEAN CORPUSCULAR VOLUME 94 fL (79-100); MONO # 0.4 x10^3/uL (0.0-1.1); MONO % 6 % (0-9); NEUT # 3.8 x10^3uL (1.8-7.7); NEUT % 57 % (31-73); PLATELET COUNT 226 x10^3/uL (140-400); RED BLOOD COUNT 4.36 x10^6/uL (3.50-5.40); WHITE BLOOD COUNT 6.8 x10^3/uL (4.0-11.0)
[2016-09-07 10:50] LABS: ALBUMIN 3.3 g/dL (3.4-5.0); ALBUMIN/GLOBULIN RATIO 0.9 (1.0-1.7); CALCIUM 9.2 mg/dL (8.5-10.1); CREATININE 1.2 mg/dL (0.6-1.0); GFR 43.2; POTASSIUM 4.1 mmol/L (3.5-5.1); TOTAL BILIRUBIN 0.4 mg/dL (0.2-1.0)
[2016-09-07 16:14] VITALS: BP 126/58
[2016-09-07] MEDS: ATORVASTATIN CALCIUM 20 MG TABLET PO SCH (19:37)
[2016-09-07] MEDS: risperiDONE 0.25 MG TABLET. PO SCH (19:37)
--- NOTE | 2016-09-07 21:40 | PDOC ---
Exam Scott Demential Exam: Scott Note: Please also refer to the separate dictated note~for this date of service dictated separately.~Patient seen individually. Discussed the patient with Nursing staff reviewed the chart.~Reviewed interim history and current functioning. Reviewed vital signs,~Labs/ Radiology~and current medications noted below. Continue current treatment with the changes noted in the dictated addendum note Assessment: Vital Signs: Vital Signs Date Time Temp Pulse Resp B/P Pulse Ox O2 Delivery O2 Flow Rate FiO2 09/07/16 16:14 97.6 65 16 126/58 95 09/04/16 06:25 Room Air I&O Intake and Output 09/07/16 07:00 Intake Total 840 ml Balance 840 ml Intake Oral 840 ml Labs: Laboratory Tests Test 09/07/16 09:45 White Blood Count 6.8x10^3/uL (4.0-11.0) Red Blood Count 4.36x10^6/uL (3.50-5.40) Hemoglobin 13.2g/dL (12.0-15.5) Hematocrit 41.0% (36.0-47.0) Mean Corpuscular Volume 94fL (79-100) Mean Corpuscular Hemoglobin 30pg (25-35) Mean Corpuscular Hemoglobin Concent 32g/dL (31-37) Red Cell Distribution Width 15.0% (11.5-14.5) H Platelet Count 226x10^3/uL (140-400) Neutrophils (%) (Auto) 57% (31-73) Lymphocytes (%) (Auto) 32% (24-48) Monocytes (%) (Auto) 6% (0-9) Eosinophils (%) (Auto) 3% (0-3) Basophils (%) (Auto) 2% (0-3) Neutrophils # (Auto) 3.8x10^3uL (1.8-7.7) Lymphocytes # (Auto) 2.2x10^3/uL (1.0-4.8) Monocytes # (Auto) 0.4x10^3/uL (0.0-1.1) Eosinophils # (Auto) 0.2x10^3/uL (0.0-0.7) Basophils # (Auto) 0.1x10^3/uL (0.0-0.2) Sodium Level 141mmol/L (136-145) Potassium Level 4.1mmol/L (3.5-5.1) Chloride Level 105mmol/L (98-107) Carbon Dioxide Level 28mmol/L (21-32) Anion Gap 8 (6-14) Blood Urea Nitrogen 21mg/dL (7-20) H Creatinine 1.2mg/dL (0.6-1.0) H Estimated GFR (Cockcroft-Gault) 43.2 BUN/Creatinine Ratio 18 (6-20) Glucose Level 144mg/dL (70-99) H Calcium Level 9.2mg/dL (8.5-10.1) Total Bilirubin 0.4mg/dL (0.2-1.0) Aspartate Amino Transferase (AST) 28U/L (15-37) Alanine Aminotransferase (ALT) 29U/L (14-59) Alkaline Phosphatase 81U/L (46-116) Total Protein 7.0g/dL (6.4-8.2) Albumin 3.3g/dL (3.4-5.0) L Albumin/Globulin Ratio 0.9 (1.0-1.7) L Current Medications: Meds: Current Medications Escitalopram Oxalate (Lexapro) 10 mg DAILY PO Last administered on 09/07/16 08 :26; Start 08/21/16 at 09:00 Lorazepam (Ativan) 1 mg PRN Q6HRS PRN PO ANXIETY / AGITATION Last administered on 08/21/16 16:42; Start 08/20/16 at 16:15; Stop 08/21/16 at 18:21; Status DC Quetiapine Fumarate (SEROquel) 25 mg TID PO Last administered on 08/24/16 13: 02; Start 08/20/16 at 21:00; Stop 08/24/16 at 18:12; Status DC Aspirin (Aspirin Enteric Coated) 81 mg DAILY PO Last administered on 09/07/16 08:26; Start 08/21/16 at 09:00 Clopidogrel Bisulfate (Plavix) 75 mg DAILY PO Last administered on 09/07/16 08 :26; Start 08/21/16 at 09:00 Levothyroxine Sodium (Synthroid) 100 mcg DAILY07 PO Last administered on 06:03; Start 08/21/16 at 07:00; Stop 08/21/16 at 13:17; Status DC Atorvastatin Calcium (Lipitor) 40 mg DAILY PO Last administered on 08/22/16 08: 09; Start 08/21/16 at 09:00; Stop 08/22/16 at 11:20; Status DC Non-Formulary Medication 1 each DAILY PO ; Start 08/21/16 at 09:00; Status UNV Multivitamins/ Calcium (Thera-M Plus) 1 tab DAILY PO Last administered on 08:09; Start 08/21/16 at 09:00; Stop 08/22/16 at 11:20; Status DC Vitamin E 400 unit DAILY PO Last administered on 08/22/16 08:09; Start 08/21/16 at 09:00; Stop 08/22/16 at 11:20; Status DC Calcium Carbonate/ Glycine (Tums) 500 mg DAILY PO Last administered on 08:08; Start 08/21/16 at 09:00; Stop 08/22/16 at 11:20; Status DC Magnesium Oxide (Magnesium Oxide) 400 mg DAILY PO Last administered on 08:09; Start 08/21/16 at 09:00; Stop 08/22/16 at 11:20; Status DC Folic Acid (Folic Acid) 1 mg DAILY PO Last administered on 08/22/16 08:09; Start 08/21/16 at 09:00; Stop 08/22/16 at 11:20; Status DC Acetaminophen (Tylenol) 650 mg PRN Q6HRS PRN PO PAIN / TEMP; Start 08/20/16 at 16:45 Al Hydroxide/Mg Hydroxide (Mylanta Plus Xs) 15 ml PRN AFTMEALHC PRN PO DYSPEPSIA; Start 08/20/16 at 16:45 Magnesium Hydroxide (Milk Of Magnesia) 2,400 mg PRN QHS PRN PO CONSTIPATION; Start 08/20/16 at 16:45 Nicotine (Nicoderm Cq 14mg) 1 patch DAILY TD Last administered on 09/07/16 08: 26; Start 08/21/16 at 09:00 Nicotine (Nicoderm Cq 14mg) 1 patch 1X ONCE TD Last administered on 08/20/16 21:08; Start 08/20/16 at 19:30; Stop 08/20/16 at 19:33; Status DC Metoprolol Succinate (Toprol Xl) 25 mg BID PO Last administered on 09/03/16 07 :48; Start 08/21/16 at 21:00; Stop 09/04/16 at 09:58; Status DC Cyanocobalamin (Vitamin B-12) 1,000 mcg [id number] IM Last administered on 13:45; Start 08/21/16 at 13:45 Acetaminophen (Tylenol) 650 mg BID PO Last administered on 08/22/16 08:10; Start 08/21/16 at 21:00; Stop 08/22/16 at 11:20; Status DC Lorazepam (Ativan) 0.25 mg PRN Q2HR PRN PO ANXIETY / AGITATION Last administered on 08/24/16 15:13; Start 08/22/16 at 16:15 Buspirone HCl (Buspar) 5 mg BID PO Last administered on 08/22/16 08:09; Start 08/21/16 at 21:00; Stop 08/22/16 at 18:22; Status DC Atorvastatin Calcium (Lipitor) 40 mg HS PO Last administered on 09/07/16 19:37 ; Start 08/23/16 at 21:00 Buspirone HCl (Buspar) 10 mg BID PO Last administered on 09/07/16 19:36; Start 08/22/16 at 21:00 Risperidone (Risperdal) 0.25 mg QHS PO Last administered on 08/25/16 19:31; Start 08/24/16 at 21:00; Stop 08/27/16 at 18:34; Status DC Risperidone (Risperdal) 0.375 mg HS PO Last administered on 09/01/16 19:47; Start 08/27/16 at 21:00; Stop 09/02/16 at 10:29; Status DC Risperidone (Risperdal) 0.25 mg HS PO Last administered on 09/07/16 19:37; Start 09/02/16 at 21:00 Metoprolol Succinate (Toprol Xl) 25 mg DAILY10 PO Last administered on 08:21; Start 09/05/16 at 10:15 Active Scripts Active Reported Vitamin E (Vitamin E Acetate) 400 Unit Capsule 400 Unit PO DAILY Seroquel (Quetiapine Fumarate) 25 Mg Tablet 1 Tab PO TID Multi-Vitamin Daily (Multivitamin) 1 Each Tablet 1 Each PO DAILY Metoprolol Succinate ( Xl ) (Metoprolol Succinate) 25 Mg Tab.er.24h 1 Tab PO BID Magnebind 400 Rx Tablet (Calcium Carbonate/Mag Carb/Fa) 1 Each Tablet 1 Each PO DAILY Lorazepam 1 Mg Tablet 1 Mg PO PRN Q6HRS PRN Synthroid (Levothyroxine Sodium) 100 Mcg Tablet 2 Tab PO DAILY Galantamine Hbr 12 Mg Tablet 24 Mg PO DAILY Escitalopram Oxalate 10 Mg Tablet 1 Tab PO DAILY Clopidogrel (Clopidogrel Bisulfate) 75 Mg Tablet 75 Mg PO DAILY Atorvastatin Calcium 40 Mg Tablet 1 Tab PO DAILY Aspirin Ec (Aspirin) 81 Mg Tablet. 1 Tab PO DAILY Amlodipine Besylate 5 Mg Tablet 1 Tab PO DAILY PRINCESS GLASS MD Sep 07, 2016 21:40
[2016-09-08] MEDS ORDERED: ACET325C PO (02:15)
[2016-09-08] MEDS ORDERED: CYAN10002 IM (02:18)
[2016-09-08] MEDS ORDERED: LORA0.5T96 PO (02:21)
--- NOTE | 2016-09-08 02:21 | PN ---
DATE: 09/06/2016 This is a late entry for 09/06/2016, covers the elements not covered in my initial note. SUBJECTIVE: The patient remains confused, forgetful, anxious, but redirectable. She had a brown ____ as I met with her, looking for the exit door "my is outside." REVIEW OF SYSTEMS: No CV, , pulmonary, eye, ENT system symptoms on review. Reliability poor. MENTAL STATUS EXAM: Oriented to herself. Insight, judgment, recent and remote memory, attention, concentration, fund of knowledge poor, consistent with her diagnosis as mentioned in my initial note. IMPRESSION: Major neurocognitive disorder, Alzheimer, vascular with depression, delusion and behavioral disturbance. PLAN: Continue BuSpar 10 b.i.d., Risperdal 0.25 mg at bedtime, Lexapro 10 mg a day, Ativan p.r.n. Adjust as indicated. PRINCESS GLASS MD DR: REZA/dank JOB#: [id number] / [id number]
[2016-09-08] MEDS ORDERED: MAG30ORA2 PO (02:23)
[2016-09-08] MEDS ORDERED: MAGN2400 PO (02:24)
[2016-09-08] MEDS ORDERED: NICO1PAT25 TD (02:24)
[2016-09-08] MEDS ORDERED: BUSP10TA PO (02:26)
[2016-09-08] MEDS ORDERED: RISP0.2519 PO (02:54)
[2016-09-08 06:28] VITALS: BP 123/50
[2016-09-08] MEDS: NICOTINE 14MG PATCH. TD SCH (09:00)
[2016-09-08] MEDS: busPIRone 10 MG TABLET. PO SCH (09:08)
[2016-09-08] MEDS: ASPIRIN ENTERIC COATED 81 MG TABLET.DR. PO SCH (09:08)
[2016-09-08] MEDS: ESCITALOPRAM 10 MG TABLET. PO SCH (09:08)
[2016-09-08] MEDS: CLOPIDOGREL BISULFATE 75 MG TABLET PO SCH (09:08)
[2016-09-08 10:00] VITALS: BP 123/50
[2016-09-08] MEDS: METOPROLOL SUCC 24HR ER 25 MG TAB.ER.24H. PO SCH ×2 (10:00→10:51)
--- NOTE | 2016-09-09 04:09 | PN ---
DATE: 09/07/2016 This is a late entry for 09/07/2016 covers elements not covered in my initial note. SUBJECTIVE: Overall, the patient remains confused, but cooperative, still a little exit seeking. REVIEW OF SYSTEMS: No CV, , pulmonary, eye, ENT system symptoms on review. Reliability poor. MENTAL STATUS EXAM: Oriented to herself. Insight, judgment, recent and remote memory, attention, concentration, fund of knowledge poor, consistent with her diagnosis as mentioned in my initial note. PLAN: Continue psychotropics as mentioned in my initial note. Transition to [facility] on 09/08/2016. MAN Ernesto GLASS MD DR: REZA/dank JOB#: [id number] / [id number]
--- NOTE | 2016-09-10 17:01 | DS ---
DATE OF DISCHARGE: 09/08/2016 DISCHARGE SUMMARY/PSYCHIATRIC PROGRESS NOTE This is late entry of 09/08/2016. REASON FOR ADMISSION: Please refer to the admission history for details. Briefly, the patient is an 80-year-old female referred to us on account of increasing mood swings, refusing medications after she destroyed her apartment. She had voiced suicidal ideation, was extremely confused with progressively worsening dementia, anxiety episodes, hallucinations. Reportedly, she failed a fall at the [facility] and eloped from the hospital and her behaviors were deemed dangerous to herself and she was admitted for inpatient psychiatric stabilization. SIGNIFICANT FINDINGS AND CLINICAL COURSE: Following admission, the patient was seen daily individually by myself from a psychiatric standpoint and medical followup with Dr. Greenfield/Dr. Brock. She was extremely confused, paranoid, withdrawn, isolative in her room, suspicious, abrasive verbally as I met with her daily individually. Gradually adjustments were made in her psychotropics and she seemed to respond to a combination of Risperdal 0.25 mg at bedtime, BuSpar 10 mg twice a day, Lexapro 10 mg a day, Ativan p.r.n. She gradually seemed to connect with another male patient on the unit and another demented patient who was a female, roommate of hers and they ultimately went to the same [facility]dc at discharge, which hopefully should be a positive transition for her. Prior to discharge on 09/08/2016, temperature 94.8, pulse 74, respirations 18 and BP 124/64. REVIEW OF SYSTEMS: No CV, , pulmonary, eye, ENT system symptoms on review. MENTAL STATUS EXAMINATION: Oriented to herself. Insight, judgment, recent and remote memory, attention, concentration, fund of knowledge poor, consistent with her diagnosis. FINAL DIAGNOSES: Major neurocognitive disorder, Alzheimer, vascular with depression, delusion, behavioral disturbance; anxiety disorder, unspecified; impulse control disorder, unspecified. Rest diagnoses unchanged from admission. DISCHARGE MEDICATIONS: Please refer to the MRAD. DISCHARGE INSTRUCTIONS: Outpatient psychiatric and medical followup at the fdc. MAN Ernesto GLASS MD DR: REZA/dank JOB#: [id number] / [id number]
== END 2016-09-08 10:45 | DRG 884 ==
LOC: GEROPSY 14:17
PROVIDERS: ADMIT Psychiatry & Neurology Psychiatry; ATTEND Psychiatry & Neurology Psychiatry
DX: F01.51 Vascular dementia, unspecified severity, with behavioral disturbance (principal); F02.81 Dementia in other diseases classified elsewhere, unspecified severity, with behavioral disturbance; F33.3 Major depressive disorder, recurrent, severe with psychotic symptoms; S32.592A Other specified fracture of left pubis, initial encounter for closed fracture; E03.9 Hypothyroidism, unspecified; E78.5 Hyperlipidemia, unspecified; E05.90 Thyrotoxicosis, unspecified without thyrotoxic crisis or storm; I25.10 Atherosclerotic heart disease of native coronary artery without angina pectoris; K21.9 Gastro-esophageal reflux disease without esophagitis; I10 Essential (primary) hypertension; F63.9 Impulse disorder, unspecified; G30.0 Alzheimer's disease with early onset; S70.02XA Contusion of left hip, initial encounter; F41.9 Anxiety disorder, unspecified; E53.8 Deficiency of other specified B group vitamins; W19.XXXA Unspecified fall, initial encounter; F17.210 Nicotine dependence, cigarettes, uncomplicated; Z83.3 Family history of diabetes mellitus; Z82.49 Family history of ischemic heart disease and other diseases of the circulatory system; Z80.9 Family history of malignant neoplasm, unspecified; Z86.73 Personal history of transient ischemic attack (TIA), and cerebral infarction without residual deficits; Z87.440 Personal history of urinary (tract) infections; Z88.1 Allergy status to other antibiotic agents; Z88.5 Allergy status to narcotic agent; Z88.2 Allergy status to sulfonamides; Z88.8 Allergy status to other drugs, medicaments and biological substances; Y93.89 Activity, other specified; Y92.128 Other place in nursing home as the place of occurrence of the external cause; Y99.8 Other external cause status
CPT/HCPCS: 36415; 70450; 73502; 80053; 80061; 81001; 82306; 82607; 83036; 83540; 83550; 83735; 84436; 84439; 84443; 84480; 85027; 86592; 86593; 87086; 93005; G0437; J3420